=== PATIENT | male | born 1950 | race Caucasian/White ===

== ENCOUNTER 2017-10-17 14:56 | Outpatient (CLI) | payer MEDICARE, BC, SELFPAY ==
[2017-10-18 09:31] LABS: PSA, Diagnostic 0.7 ng/ml (0-4.5)
[2017-10-20 01:17] LABS: Testosterone, Total 31 ng/dL (240-950)
== END 2017-10-17 15:16 ==
PROVIDERS: PCP Family Medicine; Visit Provider Nurse Practitioner
DX: C61 Malignant neoplasm of prostate (principal)
CPT/HCPCS: 36415; 84403; 84153

== ENCOUNTER 2018-01-10 14:29 | Outpatient (REF) | payer MEDICARE, BC, SELFPAY ==
[2018-01-10 21:47] LABS: TSH 3.55 uIU/mL (0.358-3.74)
== END 2018-01-10 14:49 ==
LOC: NCHCN 14:29
PROVIDERS: PCP Family Medicine; Visit Provider Family Medicine
DX: E04.1 Nontoxic single thyroid nodule (principal)
CPT/HCPCS: 84439; 84443

== ENCOUNTER 2018-05-16 11:54 | Outpatient (CLI) | payer MEDICARE, BC, SELFPAY ==
[2018-05-17 10:06] LABS: PSA, Diagnostic 9.2 ng/ml (0-4.5)
[2018-05-18 08:25] LABS: Testosterone, Total 58 ng/dL (240-950)
== END 2018-05-16 12:14 ==
PROVIDERS: PCP Family Medicine
DX: C61 Malignant neoplasm of prostate (principal)
CPT/HCPCS: 36415; 84403; 84153

== ENCOUNTER 2018-07-17 15:02 | Outpatient (CLI) | payer MEDICARE, BC, SELFPAY ==
[2018-07-17 15:34] LABS: Abs Immature Grans 0.01 k/cumm (0.0-0.09); Absolute Basophil Count 0.02 k/cumm (0.0-0.2); Absolute Eosinophil Count 0.06 k/cumm (0.0-0.7); Absolute Lymphocyte Count 1.21 k/cumm (1.2-3.4); Absolute Monocyte Count 0.24 k/cumm (0.11-0.7); Absolute Neutrophil Count 3.91 k/cumm (1.2-6.7); Basophils % 0.4; Eosinophils % 1.1; HCT 43.3 % (40.0-50.0); HGB 14.4 g/dL (13.5-17.5); Immature Grans % 0.2; Lymphocytes % 22.2; Mean Corp. HGB Concentration 33.3 g/dL (32.0-36.0); Mean Corpuscular Hemoglobin 28.4 pg (27.0-33.0); Mean Corpuscular Volume 85.4 fL (80-95); Mean Platelet Volume 8.9 fL (8.0-11.0); Monocytes % 4.4; Neutrophils % 71.7; Platelet Count 257 x1000/uL (130-400); RBC 5.07 m/cumm (4.50-6.00); RBC Distribution Width 13.4 % (11.8-14.1); White Blood Cell Count 5.45 k/cumm (4.4-10.8)
[2018-07-17 16:20] LABS: ALT 36 U/L (12-78); AST 18 U/L (15-37); Albumin 3.7 g/dL (3.4-5.0); Alkaline Phosphatase 114 U/L (46-116); BUN 16 mg/dL (7-18); Bilirubin, Total 0.3 mg/dL (0.2-1.0); CREATININE 0.84 mg/dL (0.70-1.30); Calcium 9.1 mg/dL (8.5-10.1); Chloride 104 mmol/L (98-107); Glucose 112 mg/dL (70-100); Potassium 4.1 mmol/L (3.5-5.1); Sodium 140 mmol/L (136-145); Total Protein 6.7 g/dL (6.4-8.2)
[2018-07-19 09:34] LABS: PSA, Diagnostic 19.9 ng/ml (0-4.5)
[2018-07-20 13:51] LABS: Testosterone, Total <7.0 ng/dL (240-950)
== END 2018-07-17 15:22 ==
PROVIDERS: PCP Family Medicine; Visit Provider Internal Medicine
DX: C61 Malignant neoplasm of prostate (principal); C79.51 Secondary malignant neoplasm of bone
CPT/HCPCS: 36415; 80053; 84403; 84153; 85025

== ENCOUNTER 2018-08-19 14:24 | Outpatient (CLI) | payer MEDICARE, BC, SELFPAY ==
[2018-08-19 14:53] LABS: Abs Immature Grans 0.01 k/cumm (0.0-0.09); Absolute Basophil Count 0.02 k/cumm (0.0-0.2); Absolute Eosinophil Count 0.01 k/cumm (0.0-0.7); Absolute Lymphocyte Count 0.82 k/cumm (1.2-3.4); Absolute Monocyte Count 0.23 k/cumm (0.11-0.7); Basophils % 0.3; Eosinophils % 0.2; HCT 43.4 % (40.0-50.0); HGB 14.7 g/dL (13.5-17.5); Immature Grans % 0.2; Lymphocytes % 13.7; Mean Corp. HGB Concentration 33.9 g/dL (32.0-36.0); Mean Corpuscular Hemoglobin 29.1 pg (27.0-33.0); Mean Corpuscular Volume 85.8 fL (80-95); Mean Platelet Volume 9.1 fL (8.0-11.0); Monocytes % 3.8; Neutrophils % 81.8; Platelet Count 256 x1000/uL (130-400); RBC 5.06 m/cumm (4.50-6.00); RBC Distribution Width 13.7 % (11.8-14.1); White Blood Cell Count 5.99 k/cumm (4.4-10.8)
[2018-08-19 15:35] LABS: ALT 25 U/L (12-78); AST 16 U/L (15-37); Albumin 3.8 g/dL (3.4-5.0); Alkaline Phosphatase 110 U/L (46-116); Anion Gap 10.5 mmol/L (3-11); BUN 14 mg/dL (7-18); Bilirubin, Total 0.5 mg/dL (0.2-1.0); CO2 25.5 mmol/L (21.0-32.0); CREATININE 0.83 mg/dL (0.70-1.30); Calcium 9.2 mg/dL (8.5-10.1); Chloride 106 mmol/L (98-107); Glucose 109 mg/dL (70-100); Potassium 4.2 mmol/L (3.5-5.1); Sodium 142 mmol/L (136-145); Total Protein 6.9 g/dL (6.4-8.2)
[2018-08-22 13:55] LABS: Testosterone, Total <7.0 ng/dL (240-950)
== END 2018-08-19 14:44 ==
PROVIDERS: PCP Family Medicine; Visit Provider Internal Medicine
DX: C61 Malignant neoplasm of prostate (principal); C79.51 Secondary malignant neoplasm of bone
CPT/HCPCS: 36415; 80053; 84403; 85025

== ENCOUNTER 2018-08-20 00:57 | Outpatient (CLI) | payer MEDICARE, BC, SELFPAY ==
--- NOTE | 2018-08-20 09:00 | DI.CT_ITS ---
SYMPTOMS/DIAGNOSIS: MALIGNANT NEOPLASM PROSTATE, METS TO BONE, RESTAGING, C61, C79.51 CT SCAN OF THE CHEST, ABDOMEN AND PELVIS: CT scan of the chest, abdomen and pelvis was performed following the uneventful administration of intravenous contrast material. Oral contrast was also administered. Most recent comparison available is 04/23/13. CT SCAN OF THE ABDOMEN AND PELVIS: There are again seen multiple homogeneously hypodense fluid attenuation lesions scattered throughout the liver. They appear to represent cysts. The largest are seen in the left lobe of the liver. The largest measures 2.8 x 2.2 cm. The portal, superior mesenteric and splenic veins are patent. The gallbladder is negative. There is no biliary ductal dilatation. The pancreas, spleen and adrenal glands are unremarkable. The kidneys show normal and symmetric enhancement. No evidence of a solid renal mass or obstruction is present. The urinary bladder is intact. There is mild diffuse thickening of the wall of the urinary bladder. This may be due to underdistention. No intraluminal mass is appreciated. Prostatic calcifications are in place. The abdominal aorta is of normal caliber. No significant abdominal or pelvic adenopathy, ascites or pneumoperitoneum is seen. There are small bilateral fat containing inguinal hernia. There is mild thickening of the wall of the distal esophagus. The remainder of the bowel shows no evidence of acute obstruction, inflammation or infection. There are no findings in the right lower quadrant to suggest acute appendicitis. There are sclerotic foci seen in the bones. The prominent lesions are seen in the left iliac bone. These were not present on the prior examination from 2013. The findings are suspicious for osseous metastatic disease. There are sclerotic foci seen in the spine. Degenerative changes are present throughout the spine particularly at the L 5 - S 1 disc space. There is again a fat density mass in the right gluteal muscles most suggestive of a benign lipoma. IMPRESSION: 1. Multiple sclerotic foci seen in the lumbar and sacral spine and pelvis suspicious for osseous metastatic disease. 2. Mild thickening of the wall of the urinary bladder. This may be due to chronic bladder outlet obstruction. An inflammatory or infectious process can not be excluded. 3. No evidence of significant abdominal or pelvic adenopathy. 4. Thickening of the wall of the distal esophagus. This is nonspecific but infectious or inflammatory process should be considered. Follow up as clinically appropriate. 5. Hepatic cysts. CT SCAN OF THE CHEST: There are no priors for comparison. The visualized thyroid gland is grossly unremarkable. The thoracic aorta is of normal caliber. The heart size is within normal limits. No significant pericardial effusion is seen. The central pulmonary arteries are unremarkable. No definite pulmonary emboli are appreciated. No pleural effusion or pneumothorax is identified. No significant thoracic adenopathy is appreciated. There is concentric thickening of the wall of the distal esophagus. No focal consolidating infiltrates are seen. The tracheobronchial tree is unremarkable. No suspicious noncalcified pulmonary nodules are present. There are sclerotic foci seen in the thoracic spine and the ribs most suggestive of metastatic disease. Degenerative changes are seen in the spine. IMPRESSION: Findings most consistent with osseous metastatic disease.
[2018-08-20] MEDS: Omnipaque 350 MG/ML 50 ML BTL IJ (09:52)
[2018-08-20] MEDS: Breeza Beverage 473 ML BTL PO (09:53)
[2018-08-20] MEDS: Omnipaque 350 MG/ML 100 ML BTL IJ (09:53)
--- NOTE | 2018-08-20 12:55 | DI.NM_ITS ---
SYMPTOMS/DIAGNOSIS: C61, C79.51, MALIGNANT NEOPLASM PROSTATE, METS TO BONE, RESTAGING BONE SCAN: Comparison is 04/23/13. The patient received 26.8 millicuries of Technetium 99 M MDP and whole body imaging was performed. There are multiple foci of increased radiotracer uptake. Areas are seen in the left pelvis, ribs bilaterally, left humerus and the proximal right humerus. The findings are suspicious for osseous metastatic disease. These are findings are new compared to the examination from 04/23/13. There is increased radiotracer uptake seen in the cervical spine which may be degenerative in nature. There is normal radiotracer uptake seen in the kidneys and urinary bladder. IMPRESSION: Findings most suggestive of osseous metastatic disease.
== END 2018-08-20 01:17 ==
PROVIDERS: PCP Family Medicine; Visit Provider Internal Medicine
DX: C61 Malignant neoplasm of prostate (principal); C79.51 Secondary malignant neoplasm of bone; Z12.89 Encounter for screening for malignant neoplasm of other sites; N32.9 Bladder disorder, unspecified; K22.8 Other specified diseases of esophagus; K76.89 Other specified diseases of liver
CPT/HCPCS: 74177; 78306; 71260; J3490; Q9967

== ENCOUNTER 2018-09-26 08:47 | Outpatient (CLI) | payer MEDICARE, BC, SELFPAY ==
[2018-09-26 11:53] LABS: Abs Immature Grans 0.01 k/cumm (0.0-0.09); Absolute Basophil Count 0.02 k/cumm (0.0-0.2); Absolute Eosinophil Count 0.04 k/cumm (0.0-0.7); Absolute Lymphocyte Count 1.37 k/cumm (1.2-3.4); Absolute Monocyte Count 0.43 k/cumm (0.11-0.7); Absolute Neutrophil Count 3.82 k/cumm (1.2-6.7); Basophils % 0.4; Eosinophils % 0.7; HGB 14.3 g/dL (13.5-17.5); Immature Grans % 0.2; Lymphocytes % 24.1; Mean Corp. HGB Concentration 33.3 g/dL (32.0-36.0); Mean Corpuscular Hemoglobin 28.9 pg (27.0-33.0); Mean Corpuscular Volume 86.9 fL (80-95); Mean Platelet Volume 8.9 fL (8.0-11.0); Monocytes % 7.6; Platelet Count 282 x1000/uL (130-400); RBC 4.95 m/cumm (4.50-6.00); RBC Distribution Width 13.4 % (11.8-14.1); White Blood Cell Count 5.69 k/cumm (4.4-10.8)
[2018-09-26 12:16] LABS: ALT 21 U/L (12-78); AST 11 U/L (15-37); Albumin 3.5 g/dL (3.4-5.0); Alkaline Phosphatase 105 U/L (46-116); Anion Gap 10.3 mmol/L (3-11); BUN 12 mg/dL (7-18); Bilirubin, Total 0.6 mg/dL (0.2-1.0); CO2 26.7 mmol/L (21.0-32.0); CREATININE 0.81 mg/dL (0.70-1.30); Calcium 8.7 mg/dL (8.5-10.1); Chloride 105 mmol/L (98-107); Glucose 93 mg/dL (70-100); Potassium 3.8 mmol/L (3.5-5.1); Sodium 142 mmol/L (136-145); Total Protein 6.7 g/dL (6.4-8.2)
[2018-09-27 10:02] LABS: PSA, Diagnostic 1.9 ng/ml (0-4.5)
[2018-09-30 12:30] LABS: Testosterone, Total <7.0 ng/dL (240-950)
== END 2018-09-26 09:07 ==
PROVIDERS: PCP Family Medicine; Visit Provider Internal Medicine
DX: C61 Malignant neoplasm of prostate (principal); C79.51 Secondary malignant neoplasm of bone
CPT/HCPCS: 36415; 80053; 84403; 84153; 85025

== ENCOUNTER 2018-10-16 09:54 | Outpatient (CLI) | payer MEDICARE, SELFPAY ==
[2018-10-16 10:20] LABS: Abs Immature Grans 0.01 k/cumm (0.0-0.09); Absolute Basophil Count 0.02 k/cumm (0.0-0.2); Absolute Eosinophil Count 0.04 k/cumm (0.0-0.7); Absolute Lymphocyte Count 1.23 k/cumm (1.2-3.4); Absolute Monocyte Count 0.45 k/cumm (0.11-0.7); Absolute Neutrophil Count 3.44 k/cumm (1.2-6.7); Basophils % 0.4; Eosinophils % 0.8; HCT 42.3 % (40.0-50.0); HGB 14.2 g/dL (13.5-17.5); Immature Grans % 0.2; Lymphocytes % 23.7; Mean Corp. HGB Concentration 33.6 g/dL (32.0-36.0); Mean Corpuscular Hemoglobin 28.9 pg (27.0-33.0); Mean Corpuscular Volume 86.2 fL (80-95); Mean Platelet Volume 8.9 fL (8.0-11.0); Monocytes % 8.7; Neutrophils % 66.2; Platelet Count 261 x1000/uL (130-400); RBC 4.91 m/cumm (4.50-6.00); RBC Distribution Width 13.3 % (11.8-14.1); White Blood Cell Count 5.19 k/cumm (4.4-10.8)
[2018-10-16 11:05] LABS: ALT 21 U/L (16-63); AST 13 U/L (15-37); Albumin 3.5 g/dL (3.4-5.0); Alkaline Phosphatase 107 U/L (46-116); Anion Gap 10.3 mmol/L (3-11); BUN 13 mg/dL (7-18); Bilirubin, Total 0.6 mg/dL (0.2-1.0); CO2 24.7 mmol/L (21.0-32.0); CREATININE 0.81 mg/dL (0.70-1.30); Calcium 8.5 mg/dL (8.5-10.1); Chloride 108 mmol/L (98-107); Glucose 103 mg/dL (70-100); Potassium 3.6 mmol/L (3.5-5.1); Sodium 143 mmol/L (136-145); Total Protein 6.5 g/dL (6.4-8.2)
[2018-10-17 11:05] LABS: PSA, Screening 2.1 ng/ml (0-4.5)
[2018-10-19 12:57] LABS: Testosterone, Total <7.0 ng/dL (240-950)
== END 2018-10-16 10:14 ==
PROVIDERS: PCP Family Medicine; Visit Provider Internal Medicine
DX: C61 Malignant neoplasm of prostate (principal); C79.51 Secondary malignant neoplasm of bone
CPT/HCPCS: 36415; 80053; 84153; 84403; 85025

== ENCOUNTER 2018-11-26 14:56 | Outpatient (CLI) | payer MEDICARE, BC, SELFPAY ==
[2018-11-26 15:57] LABS: Abs Immature Grans 0.01 k/cumm (0.0-0.09); Absolute Basophil Count 0.02 k/cumm (0.0-0.2); Absolute Eosinophil Count 0.02 k/cumm (0.0-0.7); Absolute Lymphocyte Count 0.93 k/cumm (1.2-3.4); Absolute Monocyte Count 0.23 k/cumm (0.11-0.7); Absolute Neutrophil Count 5.34 k/cumm (1.2-6.7); Basophils % 0.3; Eosinophils % 0.3; HCT 41.8 % (40.0-50.0); HGB 14.2 g/dL (13.5-17.5); Immature Grans % 0.2; Lymphocytes % 14.2; Mean Corpuscular Hemoglobin 29.5 pg (27.0-33.0); Mean Corpuscular Volume 86.7 fL (80-95); Monocytes % 3.5; Neutrophils % 81.5; Platelet Count 278 x1000/uL (130-400); RBC 4.82 m/cumm (4.50-6.00); RBC Distribution Width 13.1 % (11.8-14.1); White Blood Cell Count 6.55 k/cumm (4.4-10.8)
[2018-11-26 16:24] LABS: ALT 19 U/L (16-63); AST 13 U/L (15-37); Albumin 3.7 g/dL (3.4-5.0); Alkaline Phosphatase 110 U/L (46-116); Anion Gap 12.8 mmol/L (3-11); BUN 17 mg/dL (7-18); Bilirubin, Total 0.4 mg/dL (0.2-1.0); CO2 25.2 mmol/L (21.0-32.0); CREATININE 0.87 mg/dL (0.70-1.30); Calcium 9.1 mg/dL (8.5-10.1); Chloride 106 mmol/L (98-107); Glucose 136 mg/dL (70-100); Potassium 4.2 mmol/L (3.5-5.1); Sodium 144 mmol/L (136-145); Total Protein 6.7 g/dL (6.4-8.2)
[2018-11-27 10:58] LABS: PSA, Diagnostic 2.9 ng/ml (0-4.5)
[2018-11-28 12:48] LABS: Testosterone, Total <7.0 ng/dL (240-950)
== END 2018-11-26 15:16 ==
PROVIDERS: PCP Family Medicine; Visit Provider Internal Medicine
DX: C61 Malignant neoplasm of prostate (principal); C79.51 Secondary malignant neoplasm of bone
CPT/HCPCS: 36415; 80053; 84403; 84153; 85025

== ENCOUNTER 2019-01-04 08:52 | Outpatient (CLI) | payer MEDICARE, BC, SELFPAY ==
[2019-01-04 11:22] LABS: Abs Immature Grans 0.01 k/cumm (0.0-0.09); Absolute Basophil Count 0.03 k/cumm (0.0-0.2); Absolute Eosinophil Count 0.03 k/cumm (0.0-0.7); Absolute Lymphocyte Count 0.77 k/cumm (1.2-3.4); Absolute Monocyte Count 0.31 k/cumm (0.11-0.7); Absolute Neutrophil Count 4.89 k/cumm (1.2-6.7); Basophils % 0.5; Eosinophils % 0.5; HCT 41.9 % (40.0-50.0); HGB 14.2 g/dL (13.5-17.5); Immature Grans % 0.2; Lymphocytes % 12.7; Mean Corp. HGB Concentration 33.9 g/dL (32.0-36.0); Mean Corpuscular Hemoglobin 29.2 pg (27.0-33.0); Mean Corpuscular Volume 86.2 fL (80-95); Mean Platelet Volume 9.1 fL (8.0-11.0); Monocytes % 5.1; Platelet Count 269 x1000/uL (130-400); RBC 4.86 m/cumm (4.50-6.00); RBC Distribution Width 13.1 % (11.8-14.1); White Blood Cell Count 6.04 k/cumm (4.4-10.8)
[2019-01-04 11:41] LABS: ALT 20 U/L (16-63); AST 13 U/L (15-37); Albumin 3.7 g/dL (3.4-5.0); Alkaline Phosphatase 113 U/L (46-116); BUN 13 mg/dL (7-18); Bilirubin, Total 0.5 mg/dL (0.2-1.0); CREATININE 0.84 mg/dL (0.70-1.30); Calcium 8.8 mg/dL (8.5-10.1); Chloride 106 mmol/L (98-107); Glucose 99 mg/dL (74-106); Potassium 3.5 mmol/L (3.5-5.1); Sodium 143 mmol/L (136-145); Total Protein 6.7 g/dL (6.4-8.2)
[2019-01-06 11:13] LABS: PSA, Diagnostic 4.3 ng/mL (0.0-4.5)
[2019-01-09 07:17] LABS: Testosterone, Total <7.0 ng/dL (240-950)
== END 2019-01-04 09:12 ==
PROVIDERS: PCP Family Medicine; Visit Provider Internal Medicine
DX: C61 Malignant neoplasm of prostate (principal); C79.51 Secondary malignant neoplasm of bone
CPT/HCPCS: 36415; 80053; 84403; 84153; 85025

== ENCOUNTER 2019-01-06 00:35 | Outpatient (CLI) | payer MEDICARE, BC, SELFPAY ==
--- NOTE | 2019-01-06 08:27 | DI.NM_ITS ---
EXAM: NM BONE SCAN WHOLE BODY GRP CLINICAL HISTORY: MALIGNANT NEOPLASM PROSTATIC CA,C61,C79.51, RESTAGING. TECHNIQUE: Injected Dose: 25.2 mCi Tc-99m MDP Delayed Images: 2-3 hours. COMPARISON: WHOLE BODY BONE SCAN from 08/20/2018 FINDINGS: Symmetric axial uptake. Bilateral renal excretion is identified. There are again seen multiple areas of increased radiotracer uptake in the axial and appendicular skeleton. There has been interval incr ease in size of the uptake in the midshaft of the left humerus. There is increased prominence of a f ocus of increased radiotracer uptake in the L1 vertebral body since 08/10/2018. There is a new focus of increased uptake in the right femoral head. There are no other new areas of radiotracer uptake p resent. IMPRESSION: 1. Findings of osseous metastatic disease. 2. New area of uptake seen in the right femoral head. 3. Enlarging lesion in the left humerus.
== END 2019-01-06 00:55 ==
PROVIDERS: PCP Family Medicine; Visit Provider Internal Medicine
DX: C61 Malignant neoplasm of prostate (principal); C79.51 Secondary malignant neoplasm of bone
CPT/HCPCS: 78306

== ENCOUNTER 2019-01-08 01:15 | Outpatient (CLI) | payer MEDICARE, BC, SELFPAY ==
--- NOTE | 2019-01-08 09:04 | DI.CT_ITS ---
EXAM: CT CHEST/ABD/PEL W CLINICAL HISTORY: PROSTATE CA METASTATIC TO BONE,C61,C79.51, RESTAGING EXAM TECHNIQUE: Images were performed from the clavicles through the ischial tuberosities after oral and IV contrast. COMPARISON: CT CHEST/ABD/PEL W from 08/20/2018 CT CHEST/ABD/PEL W from 08/20/2018 NM BONE SCAN WHOLE BODY GRP from 01/06/2019 FINDINGS: Chest CT: The lungs appear clear. No pulmonary nodules, adenopathy, infiltrate, pleural or pericar dial effusions are seen. There has been interval increase in size of previously noted sclerotic lesi ons in the thoracic spine, particularly at the T3 and T5 levels. Small sclerotic foci are seen in th e sternum and manubrium. Bilateral rib sclerotic lesions are again noted, greater on the right anter iorly. Abdomen and pelvic CT: There are stable liver cysts. The gallbladder, spleen, pancreas, kidneys and adrenals are unremarkable. Metallic seeds are again noted in the prostate. There is mild diffuse bl adder wall thickening, unchanged. There are bilateral fatty containing inguinal hernias. A right gl uteus negra lipoma is again noted. No adenopathy or free fluid is seen in the abdomen or pelvis. T here has been interval increase in size of the previously noted L1 metastatic lesion. The lesions in the left ilium have also increased in size. There has also been increase in size of a lesion in the l eft proximal femur. Others tiny scattered foci sclerotic foci are seen. IMPRESSION: Interval increase in size of sclerotic bony metastases.
[2019-01-08] MEDS: Omnipaque 350 MG/ML 100 ML BTL IJ (09:22)
== END 2019-01-08 01:35 ==
PROVIDERS: PCP Family Medicine
DX: C61 Malignant neoplasm of prostate (principal); C79.51 Secondary malignant neoplasm of bone; K76.89 Other specified diseases of liver; Z12.89 Encounter for screening for malignant neoplasm of other sites
CPT/HCPCS: 74177; 71260; J3490

== ENCOUNTER 2019-02-11 09:51 | Outpatient (CLI) | payer MEDICARE, BC, SELFPAY ==
[2019-02-11 10:43] LABS: Abs Immature Grans 0.02 k/cumm (0.0-0.09); Absolute Basophil Count 0.05 k/cumm (0.0-0.2); Absolute Eosinophil Count 0.01 k/cumm (0.0-0.7); Absolute Lymphocyte Count 1.19 k/cumm (1.2-3.4); Absolute Monocyte Count 0.58 k/cumm (0.11-0.7); Absolute Neutrophil Count 5.91 k/cumm (1.2-6.7); Basophils % 0.6; Eosinophils % 0.1; HCT 41.7 % (40.0-50.0); HGB 14.3 g/dL (13.5-17.5); Immature Grans % 0.3 %; Lymphocytes % 15.3; Mean Corp. HGB Concentration 34.3 g/dL (32.0-36.0); Mean Corpuscular Hemoglobin 29.3 pg (27.0-33.0); Mean Corpuscular Volume 85.5 fL (80-95); Mean Platelet Volume 8.4 fL (8.0-11.0); Monocytes % 7.5; Neutrophils % 76.2; Platelet Count 498 x1000/uL (130-400); RBC 4.88 m/cumm (4.50-6.00); RBC Distribution Width 13.7 % (11.8-14.1); White Blood Cell Count 7.76 k/cumm (4.4-10.8)
[2019-02-11 10:50] LABS: ALT 18 U/L (16-63); AST 10 U/L (15-37); Albumin 3.6 g/dL (3.4-5.0); Alkaline Phosphatase 88 U/L (46-116); Anion Gap 9.7 mmol/L (3-11); BUN 17 mg/dL (7-18); Bilirubin, Total 0.5 mg/dL (0.2-1.0); CO2 25.3 mmol/L (21.0-32.0); CREATININE 0.77 mg/dL (0.70-1.30); Calcium 8.9 mg/dL (8.5-10.1); Chloride 103 mmol/L (98-107); Glucose 106 mg/dL (74-106); Potassium 4.3 mmol/L (3.5-5.1); Sodium 138 mmol/L (136-145); Total Protein 7.1 g/dL (6.4-8.2)
[2019-02-12 13:08] LABS: PSA, Diagnostic 10.4 ng/mL (0.0-4.5)
[2019-02-13 07:36] LABS: Testosterone, Total <7.0 ng/dL (240-950)
== END 2019-02-11 10:11 ==
PROVIDERS: PCP Family Medicine; Visit Provider Internal Medicine
DX: C61 Malignant neoplasm of prostate (principal); C79.51 Secondary malignant neoplasm of bone
CPT/HCPCS: 36415; 80053; 84403; 84153; 85025

== ENCOUNTER 2019-03-04 01:20 | Outpatient (CLI) | payer MEDICARE, BC, SELFPAY ==
[2019-03-04 10:29] LABS: Abs Immature Grans 0.01 k/cumm (0.0-0.09); Absolute Basophil Count 0.04 k/cumm (0.0-0.2); Absolute Eosinophil Count 0.01 k/cumm (0.0-0.7); Absolute Lymphocyte Count 1.05 k/cumm (1.2-3.4); Absolute Monocyte Count 0.61 k/cumm (0.11-0.7); Absolute Neutrophil Count 4.48 k/cumm (1.2-6.7); Basophils % 0.6; Eosinophils % 0.2; HCT 41.1 % (40.0-50.0); Immature Grans % 0.2 %; Lymphocytes % 16.9; Mean Corp. HGB Concentration 34.1 g/dL (32.0-36.0); Mean Corpuscular Hemoglobin 29.6 pg (27.0-33.0); Mean Corpuscular Volume 86.9 fL (80-95); Mean Platelet Volume 9.1 fL (8.0-11.0); Monocytes % 9.8; Neutrophils % 72.3; Platelet Count 393 x1000/uL (130-400); RBC 4.73 m/cumm (4.50-6.00); RBC Distribution Width 14.6 % (11.8-14.1)
[2019-03-04 10:49] LABS: ALT 19 U/L (16-63); AST 13 U/L (15-37); Albumin 3.7 g/dL (3.4-5.0); Alkaline Phosphatase 89 U/L (46-116); Anion Gap 10.3 mmol/L (3-11); BUN 19 mg/dL (7-18); Bilirubin, Total 0.6 mg/dL (0.2-1.0); CO2 25.7 mmol/L (21.0-32.0); CREATININE 0.76 mg/dL (0.70-1.30); Calcium 8.7 mg/dL (8.5-10.1); Chloride 105 mmol/L (98-107); Glucose 106 mg/dL (74-106); Potassium 4.3 mmol/L (3.5-5.1); Sodium 141 mmol/L (136-145)
[2019-03-06 07:31] LABS: Testosterone, Total <7.0 ng/dL (240-950)
[2019-03-06 09:02] LABS: PSA, Diagnostic 11.5 ng/mL (0.0-4.5)
== END 2019-03-04 01:40 ==
PROVIDERS: PCP Family Medicine; Visit Provider Internal Medicine
DX: C61 Malignant neoplasm of prostate (principal); C79.51 Secondary malignant neoplasm of bone
CPT/HCPCS: 36415; 80053; 84403; 84153; 85025

== ENCOUNTER 2019-03-24 03:30 | Outpatient (CLI) | payer MEDICARE, BC, SELFPAY ==
[2019-03-24 15:15] LABS: Abs Immature Grans 0.02 k/cumm (0.0-0.09); Absolute Basophil Count 0.05 k/cumm (0.0-0.2); Absolute Eosinophil Count 0.02 k/cumm (0.0-0.7); Absolute Lymphocyte Count 1.34 k/cumm (1.2-3.4); Absolute Neutrophil Count 5.52 k/cumm (1.2-6.7); Basophils % 0.7; Eosinophils % 0.3; HCT 41.2 % (40.0-50.0); HGB 13.6 g/dL (13.5-17.5); Immature Grans % 0.3 %; Lymphocytes % 17.5; Mean Corpuscular Hemoglobin 29.1 pg (27.0-33.0); Mean Corpuscular Volume 88.2 fL (80-95); Monocytes % 9.2; Platelet Count 331 x1000/uL (130-400); RBC 4.67 m/cumm (4.50-6.00); RBC Distribution Width 15.4 % (11.8-14.1); White Blood Cell Count 7.65 k/cumm (4.4-10.8)
[2019-03-24 15:26] LABS: ALT 18 U/L (16-63); AST 15 U/L (15-37); Albumin 3.7 g/dL (3.4-5.0); Alkaline Phosphatase 86 U/L (46-116); Anion Gap 6.8 mmol/L (3-11); BUN 13 mg/dL (7-18); Bilirubin, Total 0.5 mg/dL (0.2-1.0); CO2 28.2 mmol/L (21.0-32.0); CREATININE 0.85 mg/dL (0.70-1.30); Calcium 8.7 mg/dL (8.5-10.1); Chloride 107 mmol/L (98-107); Glucose 103 mg/dL (74-106); Potassium 4.7 mmol/L (3.5-5.1); Sodium 142 mmol/L (136-145); Total Protein 6.7 g/dL (6.4-8.2)
[2019-03-25 10:30] LABS: PSA, Diagnostic 14.4 ng/mL (0.0-4.5)
[2019-03-27 07:40] LABS: Testosterone, Total <7.0 ng/dL (240-950)
== END 2019-03-24 03:50 ==
PROVIDERS: PCP Family Medicine; Visit Provider Internal Medicine
DX: C61 Malignant neoplasm of prostate (principal); C79.51 Secondary malignant neoplasm of bone
CPT/HCPCS: 36415; 80053; 84403; 84153; 85025

== ENCOUNTER 2019-04-15 01:49 | Outpatient (CLI) | payer MEDICARE, BC, SELFPAY ==
[2019-04-15 10:03] LABS: Abs Immature Grans 0.01 k/cumm (0.0-0.09); Absolute Basophil Count 0.02 k/cumm (0.0-0.2); Absolute Eosinophil Count 0.01 k/cumm (0.0-0.7); Absolute Lymphocyte Count 0.97 k/cumm (1.2-3.4); Absolute Monocyte Count 0.48 k/cumm (0.11-0.7); Absolute Neutrophil Count 4.51 k/cumm (1.2-6.7); Basophils % 0.3; Eosinophils % 0.2; HGB 13.3 g/dL (13.5-17.5); Immature Grans % 0.2 %; Lymphocytes % 16.2; Mean Corp. HGB Concentration 33.3 g/dL (32.0-36.0); Mean Corpuscular Hemoglobin 29.6 pg (27.0-33.0); Mean Corpuscular Volume 89.1 fL (80-95); Mean Platelet Volume 8.7 fL (8.0-11.0); Neutrophils % 75.1; Platelet Count 369 x1000/uL (130-400); RBC 4.49 m/cumm (4.50-6.00); RBC Distribution Width 15.2 % (11.8-14.1)
[2019-04-15 10:24] LABS: ALT 17 U/L (16-63); AST 13 U/L (15-37); Alkaline Phosphatase 65 U/L (46-116); Anion Gap 7.8 mmol/L (3-11); BUN 15 mg/dL (7-18); Bilirubin, Total 0.3 mg/dL (0.2-1.0); CO2 28.2 mmol/L (21.0-32.0); CREATININE 0.72 mg/dL (0.70-1.30); Calcium 7.7 mg/dL (8.5-10.1); Chloride 105 mmol/L (98-107); Glucose 102 mg/dL (74-106); Potassium 4.1 mmol/L (3.5-5.1); Sodium 141 mmol/L (136-145); Total Protein 6.7 g/dL (6.4-8.2)
[2019-04-16 10:48] LABS: PSA, Diagnostic 15.9 ng/mL (0.0-4.5)
[2019-04-16 11:04] LABS: Lyme Ab w Rflx to Lyme Confirm Negative (Negative)
[2019-04-17 08:25] LABS: Testosterone, Total <7.0 ng/dL (240-950)
[2019-04-17 21:14] LABS: Anaplasma phagocytophilum Negative (Negative); B. miyamotoi PCR Negative (Negative); Babesia divergens/MO-1 Negative (Negative); Babesia duncani Negative (Negative); Babesia microti Negative (Negative); Ehrlichia chaffeensis Negative (Negative); Ehrlichia ewingii/canis Negative (Negative); Ehrlichia muris eauclairensis Negative (Negative)
== END 2019-04-15 02:09 ==
PROVIDERS: Family Medicine; PCP Family Medicine; Visit Provider Internal Medicine
DX: C61 Malignant neoplasm of prostate (principal); C79.51 Secondary malignant neoplasm of bone; M25.50 Pain in unspecified joint; W57.XXXA Bitten or stung by nonvenomous insect and other nonvenomous arthropods, initial encounter; T14.8XXA Other injury of unspecified body region, initial encounter
CPT/HCPCS: 36415; 80053; 84403; 87798; 84153; 85025; 86618

== ENCOUNTER 2019-05-06 04:27 | Outpatient (CLI) | payer MEDICARE, BC, SELFPAY ==
[2019-05-06 10:52] LABS: Abs Immature Grans 0.01 k/cumm (0.0-0.09); Absolute Basophil Count 0.03 k/cumm (0.0-0.2); Absolute Eosinophil Count 0.02 k/cumm (0.0-0.7); Absolute Lymphocyte Count 0.82 k/cumm (1.2-3.4); Absolute Monocyte Count 0.55 k/cumm (0.11-0.7); Absolute Neutrophil Count 5.58 k/cumm (1.2-6.7); Basophils % 0.4; Eosinophils % 0.3; HCT 41.6 % (40.0-50.0); HGB 13.9 g/dL (13.5-17.5); Immature Grans % 0.1 %; Lymphocytes % 11.7; Mean Corp. HGB Concentration 33.4 g/dL (32.0-36.0); Mean Corpuscular Hemoglobin 30.1 pg (27.0-33.0); Monocytes % 7.8; Neutrophils % 79.7; Platelet Count 332 x1000/uL (130-400); RBC 4.62 m/cumm (4.50-6.00); RBC Distribution Width 14.9 % (11.8-14.1); White Blood Cell Count 7.01 k/cumm (4.4-10.8)
[2019-05-06 11:32] LABS: ALT 22 U/L (16-63); AST 13 U/L (15-37); Albumin 3.6 g/dL (3.4-5.0); Alkaline Phosphatase 58 U/L (46-116); Anion Gap 8.1 mmol/L (3-11); BUN 19 mg/dL (7-18); Bilirubin, Total 0.4 mg/dL (0.2-1.0); CO2 24.9 mmol/L (21.0-32.0); CREATININE 0.74 mg/dL (0.70-1.30); Calcium 8.3 mg/dL (8.5-10.1); Chloride 108 mmol/L (98-107); Glucose 104 mg/dL (74-106); Potassium 4.1 mmol/L (3.5-5.1); Sodium 141 mmol/L (136-145); Total Protein 6.8 g/dL (6.4-8.2)
[2019-05-07 10:15] LABS: PSA, Diagnostic 18.9 ng/mL (0.0-4.5)
[2019-05-08 18:13] LABS: Testosterone, Total <7.0 ng/dL (240-950)
== END 2019-05-06 04:47 ==
PROVIDERS: PCP Family Medicine; Visit Provider Internal Medicine
DX: C61 Malignant neoplasm of prostate (principal); C79.51 Secondary malignant neoplasm of bone
CPT/HCPCS: 36415; 80053; 84403; 84153; 85025

== ENCOUNTER 2019-05-28 00:49 | Outpatient (CLI) | payer MEDICARE, BC, SELFPAY ==
[2019-05-28 08:57] LABS: Abs Immature Grans 0.01 k/cumm (0.0-0.09); Absolute Basophil Count 0.03 k/cumm (0.0-0.2); Absolute Lymphocyte Count 0.66 k/cumm (1.2-3.4); Absolute Monocyte Count 0.33 k/cumm (0.11-0.7); Absolute Neutrophil Count 2.46 k/cumm (1.2-6.7); Basophils % 0.9; HCT 41.1 % (40.0-50.0); HGB 13.5 g/dL (13.5-17.5); Immature Grans % 0.3 %; Lymphocytes % 18.9; Mean Corp. HGB Concentration 32.8 g/dL (32.0-36.0); Mean Corpuscular Hemoglobin 29.7 pg (27.0-33.0); Mean Corpuscular Volume 90.3 fL (80-95); Mean Platelet Volume 9.1 fL (8.0-11.0); Monocytes % 9.5; Neutrophils % 70.4; Platelet Count 282 x1000/uL (130-400); RBC 4.55 m/cumm (4.50-6.00); RBC Distribution Width 14.4 % (11.8-14.1); White Blood Cell Count 3.49 k/cumm (4.4-10.8)
[2019-05-28 09:11] LABS: ALT 21 U/L (16-63); AST 12 U/L (15-37); Albumin 3.6 g/dL (3.4-5.0); Alkaline Phosphatase 40 U/L (46-116); Anion Gap 8.3 mmol/L (3-11); BUN 16 mg/dL (7-18); Bilirubin, Total 0.4 mg/dL (0.2-1.0); CO2 26.7 mmol/L (21.0-32.0); CREATININE 0.73 mg/dL (0.70-1.30); Calcium 8.2 mg/dL (8.5-10.1); Chloride 105 mmol/L (98-107); Glucose 110 mg/dL (74-106); Sodium 140 mmol/L (136-145); Total Protein 6.8 g/dL (6.4-8.2)
--- NOTE | 2019-05-28 09:30 | DI.NM_ITS ---
EXAM: NM BONE SCAN WHOLE BODY GRP CLINICAL HISTORY: METASTATIC PROSTATE CA,S/P CHEMO, RESTAGING EXAM. TECHNIQUE: Injected Dose: 24.0 mCi Tc-99m MDP Delayed Images: 3 hours. COMPARISON: WHOLE BODY BONE SCAN from 08/20/2018 NM BONE SCAN WHOLE BODY GRP from 01/06/2019 FINDINGS: There has been interval decrease in the intensity of the previously noted bony metastases, seen in th e mid left humerus, bilateral ribs, spine and pelvis. No new areas of added abnormal increased activ ity are seen. Bilateral renal excretion is identified. The urinary bladder is distended and partial ly obscures the pelvis. IMPRESSION: Decrease in intensity of previously noted bony metastases. No new bony metastases are identified.. DATA REPOSITORY:
[2019-05-28] MEDS: Normal Saline Flush 10 ML SYR IVP (09:38)
[2019-05-28] MEDS: Normal Saline - Diluent 50 ML VIAL IV (10:27)
[2019-05-28] MEDS: Breeza Beverage 473 ML BTL PO (10:27)
[2019-05-28] MEDS: Omnipaque 350 MG/ML 100 ML BTL IJ (10:28)
[2019-05-28] MEDS: Omnipaque 350 MG/ML 50 ML BTL PO (10:29)
--- NOTE | 2019-05-28 10:30 | DI.CT_ITS ---
EXAM: CT CHEST/ABD/PEL W CLINICAL HISTORY: METASTATIC PROSTATE CA, S/P CHEMO, RESTAGING EXAM. TECHNIQUE: Imaging Protocol: Axial computed tomography images with coronal and sagittal reformatted images were created and reviewed CONTRAST MATERIAL: Intravenous: Omnipaque 350 Contrast volume:93 ml Oral: yes COMPARISON: NM BONE SCAN WHOLE BODY GRP from 01/06/2019 CT CHEST/ABD/PEL W from 01/08/2019 CT CHEST/ABD/PEL W from 01/08/2019 FINDINGS: CHEST: Thyroid: Unremarkable Tracheobronchial tree: Patent where visualized. Mediastinum and [place]: No dominant adenopathy or fluid collection. Pulmonary parenchyma: No consolidation or dominant measurable mass. No pulmonary nodules are seen.. Pleura: No effusion or pneumothorax. Lymph nodes: Within normal limits. Aorta: Thoracic portion non-dilated. Heart: Normal in size. Bones: Multiple sclerotic lesions are again noted in the spine as well as in bilateral ribs. No comp ression fractures are seen. ABDOMEN: Liver: Normal density. Multiple liver cysts are again noted. No suspicious masses are identified.. Gallbladder and biliary tract: No radiodense calculus or dilation. Pancreas: Normal density, no abnormal calcifications or inflammatory process. Spleen: Normal. Kidneys: Normal size, contour and axis. No radiodense stones or obstructive uropathy. No masses seen. Adrenal glands: No masses seen. Aorta: Abdominal portion non-dilated. Lymph nodes: Within normal limits. PELVIS: Bladder: Symmetric distention, stable mild wall thickening. Bowel: No obstruction or bowel wall thickening. Peritoneal cavity: No ascites, collection or mesenteric inflammatory response. Bones: There has been no change in a sclerotic lesion of L1. A few other tiny sclerotic lesions are seen in the lumbar vertebral bodies. There has been no significant change in the sclerotic lesions i n the left iliac wing. A few other scattered tiny sclerotic lesions are seen in the right pelvis. T he sclerotic lesion in the proximal left femur appears unchanged.. A small sclerotic area in the rig ht femoral head is unchanged. Prostate: Small in size and contains metallic seeds, unchanged. Soft tissues: An intramuscular lipoma is noted in the right gluteus negra. IMPRESSION: Stable sclerotic bony metastases. No new metastatic disease in the chest abdomen or pelvis.. DATA REPOSITORY: All CT scans at this facility are submitted to the National Radiology Data Registry (NRDR) Dose Index Registry (DIR) with the [employer] ([employer]). RADIATION OPTIMIZATION: All CT scans at this facility use at least one of these dose optimization te chniques: automated exposure control; mA and/or kV adjustment per patient size (includes targeted exa ms where dose is matched to clinical indication); or iterative reconstruction.
[2019-05-29 14:03] LABS: PSA, Diagnostic 25.4 ng/mL (0.0-4.5)
[2019-05-31 00:18] LABS: Testosterone, Total 9.9 ng/dL (240-950)
== END 2019-05-28 01:09 ==
PROVIDERS: PCP Family Medicine; Visit Provider Internal Medicine
DX: C61 Malignant neoplasm of prostate (principal); C79.51 Secondary malignant neoplasm of bone; Z92.21 Personal history of antineoplastic chemotherapy; K76.89 Other specified diseases of liver; Z12.89 Encounter for screening for malignant neoplasm of other sites
CPT/HCPCS: 74177; 78306; 80053; 84403; 71260; 84153; 85025; J3490; Q9967

== ENCOUNTER 2019-06-02 09:47 | Outpatient (CLI) | payer MEDICARE, BC, SELFPAY ==
[2019-06-02 15:35] LABS: Absolute Basophil Count 0.03 k/cumm (0.0-0.2); Absolute Eosinophil Count 0.03 k/cumm (0.0-0.7); Absolute Lymphocyte Count 1.04 k/cumm (1.2-3.4); Absolute Monocyte Count 0.43 k/cumm (0.11-0.7); Absolute Neutrophil Count 4.06 k/cumm (1.2-6.7); Basophils % 0.5; Eosinophils % 0.5; HCT 40.7 % (40.0-50.0); HGB 13.5 g/dL (13.5-17.5); Lymphocytes % 18.6; Mean Corp. HGB Concentration 33.2 g/dL (32.0-36.0); Mean Corpuscular Hemoglobin 29.8 pg (27.0-33.0); Mean Corpuscular Volume 89.8 fL (80-95); Mean Platelet Volume 9.6 fL (8.0-11.0); Monocytes % 7.7; Neutrophils % 72.7; Platelet Count 240 x1000/uL (130-400); RBC 4.53 m/cumm (4.50-6.00); RBC Distribution Width 14.1 % (11.8-14.1); White Blood Cell Count 5.59 k/cumm (4.4-10.8)
[2019-06-02 16:13] LABS: ALT 24 U/L (16-63); AST 13 U/L (15-37); Albumin 3.5 g/dL (3.4-5.0); Alkaline Phosphatase 45 U/L (46-116); Anion Gap 6.3 mmol/L (3-11); BUN 17 mg/dL (7-18); Bilirubin, Total 0.3 mg/dL (0.2-1.0); CO2 26.7 mmol/L (21.0-32.0); CREATININE 0.72 mg/dL (0.70-1.30); Calcium 8.5 mg/dL (8.5-10.1); Chloride 104 mmol/L (98-107); Glucose 114 mg/dL (74-106); Potassium 4.1 mmol/L (3.5-5.1); Sodium 137 mmol/L (136-145); Total Protein 6.3 g/dL (6.4-8.2)
[2019-06-03 11:30] LABS: PSA, Diagnostic 27.8 ng/mL (0.0-4.5)
[2019-06-05 07:56] LABS: Testosterone, Total <7.0 ng/dL (240-950)
== END 2019-06-02 10:07 ==
PROVIDERS: PCP Family Medicine; Visit Provider Internal Medicine
DX: C61 Malignant neoplasm of prostate (principal); C79.51 Secondary malignant neoplasm of bone
CPT/HCPCS: 36415; 80053; 84403; 84153; 85025

== ENCOUNTER 2019-07-09 02:30 | Outpatient (CLI) | payer MEDICARE, BC, SELFPAY ==
[2019-07-09 12:17] LABS: Absolute Basophil Count 0.02 k/cumm (0.0-0.2); Absolute Eosinophil Count 0.05 k/cumm (0.0-0.7); Absolute Lymphocyte Count 1.19 k/cumm (1.2-3.4); Absolute Monocyte Count 0.31 k/cumm (0.11-0.7); Absolute Neutrophil Count 2.83 k/cumm (1.2-6.7); Basophils % 0.5; Eosinophils % 1.1; HGB 14.8 g/dL (13.5-17.5); Mean Corp. HGB Concentration 33.6 g/dL (32.0-36.0); Mean Corpuscular Hemoglobin 28.7 pg (27.0-33.0); Mean Corpuscular Volume 85.3 fL (80-95); Neutrophils % 64.4; Platelet Count 261 x1000/uL (130-400); RBC 5.16 m/cumm (4.50-6.00); RBC Distribution Width 12.9 % (11.8-14.1)
[2019-07-09 12:56] LABS: ALT 15 U/L (16-63); AST 13 U/L (15-37); Albumin 3.9 g/dL (3.4-5.0); Alkaline Phosphatase 43 U/L (46-116); BUN 13 mg/dL (7-18); Bilirubin, Total 0.6 mg/dL (0.2-1.0); CREATININE 0.86 mg/dL (0.70-1.30); Calcium 8.9 mg/dL (8.5-10.1); Chloride 103 mmol/L (98-107); Glucose 103 mg/dL (74-106); Potassium 4.3 mmol/L (3.5-5.1); Sodium 137 mmol/L (136-145); Total Protein 6.9 g/dL (6.4-8.2)
[2019-07-10 15:22] LABS: PSA, Ultrasensitive 30.7 ng/mL (<= 4.5)
[2019-07-13 13:44] LABS: Testosterone, Total 8.7 ng/dL (240-950)
== END 2019-07-09 02:50 ==
PROVIDERS: PCP Family Medicine; Visit Provider Internal Medicine
DX: C61 Malignant neoplasm of prostate (principal)
CPT/HCPCS: 36415; 80053; 84153; 84403; 85025

== ENCOUNTER 2019-08-13 03:06 | Outpatient (CLI) | payer MEDICARE, BC, SELFPAY ==
[2019-08-13 09:13] LABS: Abs Immature Grans 0.01 k/cumm (0.0-0.09); Absolute Basophil Count 0.02 k/cumm (0.0-0.2); Absolute Eosinophil Count 0.09 k/cumm (0.0-0.7); Absolute Lymphocyte Count 1.28 k/cumm (1.2-3.4); Absolute Monocyte Count 0.31 k/cumm (0.11-0.7); Absolute Neutrophil Count 2.44 k/cumm (1.2-6.7); Basophils % 0.5; Eosinophils % 2.2; HCT 40.5 % (40.0-50.0); HGB 13.9 g/dL (13.5-17.5); Immature Grans % 0.2 %; Lymphocytes % 30.8; Mean Corp. HGB Concentration 34.3 g/dL (32.0-36.0); Mean Corpuscular Hemoglobin 28.8 pg (27.0-33.0); Mean Platelet Volume 8.5 fL (8.0-11.0); Monocytes % 7.5; Neutrophils % 58.8; Platelet Count 282 x1000/uL (130-400); RBC 4.82 m/cumm (4.50-6.00); RBC Distribution Width 13.3 % (11.8-14.1); White Blood Cell Count 4.15 k/cumm (4.4-10.8)
[2019-08-13 09:22] LABS: ALT 13 U/L (16-63); AST 12 U/L (15-37); Albumin 3.3 g/dL (3.4-5.0); Alkaline Phosphatase 38 U/L (46-116); BUN 16 mg/dL (7-18); Bilirubin, Total 0.4 mg/dL (0.2-1.0); CREATININE 0.78 mg/dL (0.70-1.30); Calcium 8.7 mg/dL (8.5-10.1); Chloride 103 mmol/L (98-107); Glucose 98 mg/dL (74-106); Potassium 4.1 mmol/L (3.5-5.1); Sodium 137 mmol/L (136-145); Total Protein 6.9 g/dL (6.4-8.2)
[2019-08-14 13:51] LABS: PSA, Ultrasensitive 38.9 ng/mL (<= 4.5)
[2019-08-15 11:37] LABS: Testosterone, Total <7.0 ng/dL (240-950)
== END 2019-08-13 03:26 ==
PROVIDERS: PCP Family Medicine; Visit Provider Internal Medicine
DX: C61 Malignant neoplasm of prostate (principal); C79.51 Secondary malignant neoplasm of bone
CPT/HCPCS: 36415; 80053; 84153; 84403; 85025

== ENCOUNTER 2019-09-16 04:36 | Outpatient (CLI) | payer MEDICARE, BC, SELFPAY ==
[2019-09-16 10:12] LABS: Absolute Basophil Count 0.03 10^3/uL (0.0-0.2); Absolute Eosinophil Count 0.09 10^3/uL (0.0-0.7); Absolute Lymphocyte Count 1.04 10^3/uL (1.2-3.4); Absolute Neutrophil Count 2.68 10^3/uL (1.2-6.7); Basophils % 0.7; Eosinophils % 2.2; HCT 40.9 % (40.0-50.0); HGB 13.6 g/dL (13.5-17.5); Lymphocytes % 25.1; MCH 28.8 pg (27.0-33.0); MCHC 33.3 % (32.0-36.0); MCV 86.7 fL (80-95); MPV 8.7 fL (8.0-11.0); Monocytes % 7.2; Neutrophils % 64.8; Nucleated RBC 0 %; Platelet Count 247 10^3/uL (130-400); RBC 4.72 10^6/uL (4.36-5.78); RDW 14.4 % (11.8-14.1); RDW-SD 45.5 fL; WBC 4.14 10^3/uL (4.4-10.8)
[2019-09-16 10:32] LABS: ALT 15 U/L (16-63); AST 13 U/L (15-37); Albumin 3.5 g/dL (3.4-5.0); Alkaline Phosphatase 33 U/L (46-116); Anion Gap 7.1 mmol/L (3-11); BUN 14 mg/dL (7-18); Bilirubin, Total 0.5 mg/dL (0.2-1.0); CO2 26.9 mmol/L (21.0-32.0); CREATININE 0.79 mg/dL (0.70-1.30); Calcium 8.4 mg/dL (8.5-10.1); Chloride 104 mmol/L (98-107); Glucose 98 mg/dL (74-106); Potassium 4.2 mmol/L (3.5-5.1); Sodium 138 mmol/L (136-145); Total Protein 6.9 g/dL (6.4-8.2)
[2019-09-17 14:13] LABS: PSA, Ultrasensitive 58.4 ng/mL (<= 4.5)
[2019-09-18 14:09] LABS: Testosterone, Total <7.0 ng/dL (240-950)
== END 2019-09-16 04:56 ==
PROVIDERS: PCP Family Medicine; Visit Provider Internal Medicine
DX: C61 Malignant neoplasm of prostate (principal)
CPT/HCPCS: 36415; 80053; 84153; 84403; 85025

== ENCOUNTER 2019-11-20 02:46 | Outpatient (CLI) | payer MEDICARE, BC, SELFPAY ==
[2019-11-20 12:34] LABS: Abs Immature Grans 0.01 10^3/uL (0.0-0.06); Absolute Basophil Count 0.02 10^3/uL (0.0-0.2); Absolute Eosinophil Count 0.03 10^3/uL (0.0-0.7); Absolute Lymphocyte Count 1.08 10^3/uL (1.2-3.4); Absolute Monocyte Count 0.23 10^3/uL (0.1-0.8); Absolute Neutrophil Count 3.79 10^3/uL (1.2-6.7); Basophils % 0.4; Eosinophils % 0.6; HCT 37.2 % (40.0-50.0); HGB 12.4 g/dL (13.5-17.5); Immature Grans % 0.2; Lymphocytes % 20.9; MCH 30.2 pg (27.0-33.0); MCHC 33.3 % (32.0-36.0); MCV 90.5 fL (80-95); Monocytes % 4.5; Neutrophils % 73.4; Nucleated RBC 0 %; Platelet Count 237 10^3/uL (130-400); RBC 4.11 10^6/uL (4.36-5.78); RDW 13.4 % (11.8-14.1); WBC 5.16 10^3/uL (4.4-10.8)
[2019-11-20 13:19] LABS: ALT 17 U/L (16-63); AST 12 U/L (15-37); Albumin 3.7 g/dL (3.4-5.0); Alkaline Phosphatase 62 U/L (46-116); Anion Gap 7.5 mmol/L (3-11); BUN 15 mg/dL (7-18); Bilirubin, Total 0.5 mg/dL (0.2-1.0); CO2 28.5 mmol/L (21.0-32.0); Calcium 8.5 mg/dL (8.5-10.1); Chloride 106 mmol/L (98-107); Glucose 98 mg/dL (74-106); Potassium 3.9 mmol/L (3.5-5.1); Sodium 142 mmol/L (136-145); Total Protein 6.5 g/dL (6.4-8.2)
[2019-11-22 14:40] LABS: PSA, Ultrasensitive 145 ng/mL (<= 4.5)
[2019-11-24 13:06] LABS: Testosterone, Total <7.0 ng/dL (240-950)
== END 2019-11-20 03:06 ==
PROVIDERS: PCP Family Medicine; Visit Provider Internal Medicine
DX: C61 Malignant neoplasm of prostate (principal)
CPT/HCPCS: 36415; 80053; 84153; 84403; 85025

== ENCOUNTER 2019-12-30 04:09 | Outpatient (CLI) | payer MEDICARE, BC, SELFPAY ==
[2019-12-30 15:35] LABS: Abs Immature Grans 0.02 10^3/uL (0.0-0.06); Absolute Basophil Count 0.02 10^3/uL (0.0-0.2); Absolute Eosinophil Count 0.03 10^3/uL (0.0-0.7); Absolute Lymphocyte Count 1.03 10^3/uL (1.2-3.4); Absolute Monocyte Count 0.31 10^3/uL (0.1-0.8); Absolute Neutrophil Count 5.18 10^3/uL (1.2-6.7); Basophils % 0.3; Eosinophils % 0.5; HCT 39.2 % (40.0-50.0); HGB 13.2 g/dL (13.5-17.5); Immature Grans % 0.3; Lymphocytes % 15.6; MCH 31.1 pg (27.0-33.0); MCHC 33.7 % (32.0-36.0); MCV 92.2 fL (80-95); MPV 8.7 fL (8.0-11.0); Monocytes % 4.7; Neutrophils % 78.6; Nucleated RBC 0 %; Platelet Count 240 10^3/uL (130-400); RBC 4.25 10^6/uL (4.36-5.78); RDW 14.8 % (11.8-14.1); WBC 6.59 10^3/uL (4.4-10.8)
[2019-12-30 16:38] LABS: ALT 15 U/L (16-63); AST 13 U/L (15-37); Albumin 3.8 g/dL (3.4-5.0); Alkaline Phosphatase 68 U/L (46-116); Anion Gap 5.5 mmol/L (3-11); BUN 14 mg/dL (7-18); Bilirubin, Total 0.4 mg/dL (0.2-1.0); CO2 28.5 mmol/L (21.0-32.0); CREATININE 0.98 mg/dL (0.70-1.30); Calcium 8.4 mg/dL (8.5-10.1); Chloride 105 mmol/L (98-107); Glucose 108 mg/dL (74-106); Potassium 4.2 mmol/L (3.5-5.1); Sodium 139 mmol/L (136-145); Total Protein 6.6 g/dL (6.4-8.2)
[2020-01-02 12:01] LABS: PSA, Ultrasensitive 337 ng/mL (<= 4.5)
[2020-01-06 11:50] LABS: Testosterone, Total <7.0 ng/dL (240-950)
== END 2019-12-30 04:29 ==
PROVIDERS: PCP Family Medicine; Visit Provider Internal Medicine
DX: C61 Malignant neoplasm of prostate (principal)
CPT/HCPCS: 36415; 80053; 84153; 84403; 85025

== ENCOUNTER 2020-02-04 01:37 | Outpatient (CLI) | payer MEDICARE, BC, SELFPAY ==
--- NOTE | 2020-02-04 | DI.NM_ITS ---
EXAM: CA BONE SCAN WHOLE BODY GRP CLINICAL HISTORY: METASTATIC PROSTATE CA TO BONE,C61,C79.51,RESTAGING EXAM. COMPARISON: [facility] BONE SCAN WHOLE BODY GRP from 05/28/2019 EXAMINATION: Whole body bone scan was performed with intravenous infusion 27.0 millicuries of techne tium 99 labeled methylene diphosphonate. Additional oblique images thorax and pelvis were obtained. Examination is compared with prior scan May 28, 2019. There are numerous new areas of increased up take seen in spine, skull, appendicular skeleton particularly the left humerus, pelvis, and proximal femurs. There is increased intensity and size of previously noted left humeral and left rib areas of increased uptake. FINDINGS: Findings consistent with significant interval increase in number and uptake intensity of numerous ske letal metastatic lesions. IMPRESSION:
[2020-02-04] MEDS: Omnipaque 350 MG/ML 50 ML BTL IJ (09:44)
[2020-02-04] MEDS: Breeza Beverage 473 ML BTL PO (09:45)
[2020-02-04 09:47] LABS: Abs Immature Grans 0.02 10^3/uL (0.0-0.06); Absolute Basophil Count 0.02 10^3/uL (0.0-0.2); Absolute Eosinophil Count 0.02 10^3/uL (0.0-0.7); Absolute Lymphocyte Count 0.71 10^3/uL (1.2-3.4); Absolute Monocyte Count 0.18 10^3/uL (0.1-0.8); Absolute Neutrophil Count 3.45 10^3/uL (1.2-6.7); Basophils % 0.5; Eosinophils % 0.5; HCT 37.9 % (40.0-50.0); HGB 12.8 g/dL (13.5-17.5); Immature Grans % 0.5; Lymphocytes % 16.1; MCH 31.7 pg (27.0-33.0); MCHC 33.8 % (32.0-36.0); MCV 93.8 fL (80-95); Monocytes % 4.1; Neutrophils % 78.3; Nucleated RBC 0 %; Platelet Count 236 10^3/uL (130-400); RBC 4.04 10^6/uL (4.36-5.78); RDW 15.5 % (11.8-14.1); RDW-SD 53.1 fL
[2020-02-04 10:02] LABS: ALT 23 U/L (16-63); AST 13 U/L (15-37); Albumin 3.6 g/dL (3.4-5.0); Alkaline Phosphatase 86 U/L (46-116); Anion Gap 7.1 mmol/L (3-11); BUN 13 mg/dL (7-18); Bilirubin, Total 0.6 mg/dL (0.2-1.0); CO2 26.9 mmol/L (21.0-32.0); CREATININE 0.98 mg/dL (0.70-1.30); Calcium 8.1 mg/dL (8.5-10.1); Chloride 105 mmol/L (98-107); Glucose 113 mg/dL (74-106); Potassium 3.8 mmol/L (3.5-5.1); Sodium 139 mmol/L (136-145); Total Protein 6.9 g/dL (6.4-8.2)
[2020-02-04] MEDS: Normal Saline - Diluent 50 ML VIAL IV (11:00)
[2020-02-04] MEDS: Omnipaque 350 MG/ML 100 ML BTL IJ (11:00)
--- NOTE | 2020-02-04 11:01 | DI.CT_ITS ---
EXAM: CT CHEST/ABD/PEL W CLINICAL HISTORY: PROSTATE CA METASTATIC TO BONE, RESTAGING EXAM,C61,C79.51 TECHNIQUE: CT examination of the chest, abdomen, and pelvis was performed utilizing intravenous inf usion of 100 cc of Omnipaque 350 with biphasic hepatic imaging. Oral contrast was also administered. COMPARISON: CT CT CHEST/ABD/PEL W from 05/28/2019 FINDINGS: Lungs are clear except for an incidental stable 3 millimeter in diameter left upper lobe nodule. No pleural effusion. No pleural based mass. No mediastinal or hilar adenopathy. No axillary or supraclavicular adenopathy. Tracheobronchial prudencio e appears intact. No evidence of pulmonary embolic disease. Unremarkable appearance of thoracic aorta and major branch vessels. Numerous bilateral hepatic cysts again noted, unchanged. Spleen is unremarkable in appearance. Pancreas appears intact. Adrenals appear normal. Kidneys are unremarkable in appearance with no renal mass, hydronephrosis, or nephrolithiasis. Mild u rinary bladder wall thickening noted Abdominal aorta and major visceral branches appear intact. No focal bowel pathology. Appendix is normal. No evidence of diverticulitis. No abdominal or pelvic adenopathy. . No significant abdominal wall hernia. There are numerous sclerotic bony metastases seen throughout the spine, ribs, and pelvis. These appe ar to have increased in number and size in comparison with prior CT May 27. IMPRESSION: Interval increase in number and size of numerous skeletal metastases in a patient with known prostati c carcinoma. No other significant change. RADIATION DOSE DELIVERED: 1,783.33mGy.cm Total DLP 1,783.33mGy.cm Total DLP
[2020-02-05 11:47] LABS: PSA, Ultrasensitive 634 ng/mL (<= 6.5)
[2020-02-09 14:43] LABS: Testosterone, Total 9.7 ng/dL (240-950)
== END 2020-02-04 01:57 ==
PROVIDERS: PCP Family Medicine; Visit Provider Internal Medicine
DX: C61 Malignant neoplasm of prostate (principal); C79.51 Secondary malignant neoplasm of bone
CPT/HCPCS: 74177; 78306; 80053; 84153; 84403; 71260; 85025; J3490; Q9967

== ENCOUNTER 2020-02-16 02:56 | Outpatient (CLI) | payer MEDICARE, BC, SELFPAY ==
[2020-02-16 10:52] LABS: Abs Immature Grans 0.02 10^3/uL (0.0-0.06); Absolute Basophil Count 0.02 10^3/uL (0.0-0.2); Absolute Eosinophil Count 0.02 10^3/uL (0.0-0.7); Absolute Lymphocyte Count 0.88 10^3/uL (1.2-3.4); Absolute Monocyte Count 0.27 10^3/uL (0.1-0.8); Absolute Neutrophil Count 3.24 10^3/uL (1.2-6.7); Basophils % 0.4; Eosinophils % 0.4; HCT 38.4 % (40.0-50.0); HGB 12.8 g/dL (13.5-17.5); Immature Grans % 0.4; Lymphocytes % 19.8; MCH 31.9 pg (27.0-33.0); MCHC 33.3 % (32.0-36.0); MCV 95.8 fL (80-95); MPV 9.2 fL (8.0-11.0); Monocytes % 6.1; Neutrophils % 72.9; Nucleated RBC 0 %; Platelet Count 259 10^3/uL (130-400); RBC 4.01 10^6/uL (4.36-5.78); RDW 15.4 % (11.8-14.1); RDW-SD 54.8 fL; WBC 4.45 10^3/uL (4.4-10.8)
[2020-02-16 11:44] LABS: ALT 21 U/L (16-63); AST 18 U/L (15-37); Albumin 3.8 g/dL (3.4-5.0); Alkaline Phosphatase 122 U/L (46-116); Anion Gap 6.1 mmol/L (3-11); BUN 14 mg/dL (7-18); Bilirubin, Total 0.6 mg/dL (0.2-1.0); CO2 27.9 mmol/L (21.0-32.0); CREATININE 0.83 mg/dL (0.70-1.30); Calcium 8.4 mg/dL (8.5-10.1); Chloride 103 mmol/L (98-107); Glucose 100 mg/dL (74-106); Potassium 4.1 mmol/L (3.5-5.1); Sodium 137 mmol/L (136-145); Total Protein 6.7 g/dL (6.4-8.2)
[2020-02-17 18:08] LABS: PSA, Ultrasensitive 775 ng/mL (<= 6.5)
[2020-02-20 01:07] LABS: Testosterone, Total 12 ng/dL (240-950)
== END 2020-02-16 03:16 ==
PROVIDERS: PCP Family Medicine; Visit Provider Internal Medicine
DX: C61 Malignant neoplasm of prostate (principal)
CPT/HCPCS: 36415; 80053; 84153; 84403; 85025

== ENCOUNTER 2020-03-08 04:35 | Outpatient (CLI) | payer MEDICARE, BC, SELFPAY ==
[2020-03-08 13:06] LABS: Abs Immature Grans 0.06 10^3/uL (0.0-0.06); Absolute Basophil Count 0.04 10^3/uL (0.0-0.2); Absolute Lymphocyte Count 0.99 10^3/uL (1.2-3.4); Absolute Monocyte Count 0.55 10^3/uL (0.1-0.8); Absolute Neutrophil Count 5.11 10^3/uL (1.2-6.7); Basophils % 0.6; HGB 11.8 g/dL (13.5-17.5); Immature Grans % 0.9; Lymphocytes % 14.7; MCH 31.8 pg (27.0-33.0); MCHC 32.8 % (32.0-36.0); Monocytes % 8.1; Neutrophils % 75.7; Nucleated RBC 0 %; Platelet Count 274 10^3/uL (130-400); RBC 3.71 10^6/uL (4.36-5.78); RDW 14.7 % (11.8-14.1); RDW-SD 53.2 fL; WBC 6.75 10^3/uL (4.4-10.8)
[2020-03-08 14:13] LABS: ALT 19 U/L (16-63); AST 46 U/L (15-37); Albumin 3.6 g/dL (3.4-5.0); Alkaline Phosphatase 167 U/L (46-116); Anion Gap 6.9 mmol/L (3-11); BUN 13 mg/dL (7-18); Bilirubin, Total 0.3 mg/dL (0.2-1.0); CO2 28.1 mmol/L (21.0-32.0); CREATININE 0.8 mg/dL (0.70-1.30); Calcium 8.8 mg/dL (8.5-10.1); Chloride 104 mmol/L (98-107); Glucose 108 mg/dL (74-106); Potassium 4.7 mmol/L (3.5-5.1); Sodium 139 mmol/L (136-145); Total Protein 6.6 g/dL (6.4-8.2)
[2020-03-10 10:54] LABS: PSA, Ultrasensitive 1193 ng/mL (<= 6.5)
[2020-03-10 22:23] LABS: Testosterone, Total <7.0 ng/dL (240-950)
== END 2020-03-08 04:55 ==
PROVIDERS: PCP Family Medicine; Visit Provider Internal Medicine
DX: C61 Malignant neoplasm of prostate (principal)
CPT/HCPCS: 36415; 80053; 84153; 84403; 85025

== ENCOUNTER 2020-03-29 03:07 | Outpatient (CLI) | payer MEDICARE, BC, SELFPAY ==
[2020-03-29 12:53] LABS: Abs Immature Grans 0.06 10^3/uL (0.0-0.06); Absolute Basophil Count 0.03 10^3/uL (0.0-0.2); Absolute Lymphocyte Count 0.98 10^3/uL (1.2-3.4); Absolute Monocyte Count 0.63 10^3/uL (0.1-0.8); Absolute Neutrophil Count 4.91 10^3/uL (1.2-6.7); Basophils % 0.5; HCT 32.6 % (40.0-50.0); HGB 10.7 g/dL (13.5-17.5); Immature Grans % 0.9; Lymphocytes % 14.8; MCH 31.8 pg (27.0-33.0); MCHC 32.8 % (32.0-36.0); MCV 96.7 fL (80-95); MPV 9.1 fL (8.0-11.0); Monocytes % 9.5; Neutrophils % 74.3; Nucleated RBC 0 %; Platelet Count 236 10^3/uL (130-400); RBC 3.37 10^6/uL (4.36-5.78); RDW 14.6 % (11.8-14.1); RDW-SD 50.8 fL; WBC 6.61 10^3/uL (4.4-10.8)
[2020-03-29 13:37] LABS: ALT 18 U/L (16-63); AST 24 U/L (15-37); Albumin 3.4 g/dL (3.4-5.0); Alkaline Phosphatase 108 U/L (46-116); BUN 16 mg/dL (7-18); Bilirubin, Total 0.2 mg/dL (0.2-1.0); CREATININE 0.8 mg/dL (0.70-1.30); Calcium 8.4 mg/dL (8.5-10.1); Chloride 104 mmol/L (98-107); Glucose 109 mg/dL (74-106); Sodium 142 mmol/L (136-145); Total Protein 6.5 g/dL (6.4-8.2)
[2020-03-31 12:57] LABS: PSA, Ultrasensitive 1721 ng/mL (<= 6.5)
[2020-04-01 10:23] LABS: Testosterone, Total 8.4 ng/dL (240-950)
== END 2020-03-29 03:08 | disposition home or self-care (01) ==
LOC: LBO 03:07
PROVIDERS: PCP Family Medicine; Visit Provider Internal Medicine
DX: C61 Malignant neoplasm of prostate (principal); C79.51 Secondary malignant neoplasm of bone
CPT/HCPCS: 36415; 80053; 84153; 84403; 85025

== ENCOUNTER 2020-04-19 03:15 | Outpatient (CLI) | payer MEDICARE, BC, SELFPAY ==
[2020-04-19 09:01] LABS: Abs Immature Grans 0.15 10^3/uL (0.0-0.06); Absolute Basophil Count 0.03 10^3/uL (0.0-0.2); Absolute Lymphocyte Count 0.65 10^3/uL (1.2-3.4); Absolute Monocyte Count 0.56 10^3/uL (0.1-0.8); Absolute Neutrophil Count 6.75 10^3/uL (1.2-6.7); Basophils % 0.4; HCT 30.7 % (40.0-50.0); Immature Grans % 1.8; MCH 31.8 pg (27.0-33.0); MCHC 32.6 % (32.0-36.0); MCV 97.8 fL (80-95); MPV 8.7 fL (8.0-11.0); Monocytes % 6.9; Neutrophils % 82.9; Nucleated RBC 0 %; Platelet Count 167 10^3/uL (130-400); RBC 3.14 10^6/uL (4.36-5.78); RDW-SD 53.2 fL; WBC 8.14 10^3/uL (4.4-10.8)
[2020-04-19 10:08] LABS: ALT 17 U/L (16-63); AST 33 U/L (15-37); Albumin 3.4 g/dL (3.4-5.0); Alkaline Phosphatase 155 U/L (46-116); Anion Gap 9.6 mmol/L (3-11); BUN 12 mg/dL (7-18); Bilirubin, Total 0.4 mg/dL (0.2-1.0); CO2 26.4 mmol/L (21.0-32.0); CREATININE 0.8 mg/dL (0.70-1.30); Calcium 8.2 mg/dL (8.5-10.1); Chloride 102 mmol/L (98-107); Glucose 134 mg/dL (74-106); Sodium 138 mmol/L (136-145); Total Protein 6.4 g/dL (6.4-8.2)
[2020-04-20 20:29] LABS: PSA, Ultrasensitive 2851 ng/mL (<= 6.5)
[2020-04-21 17:41] LABS: Testosterone, Total <7.0 ng/dL (240-950)
== END 2020-04-19 03:16 | disposition home or self-care (01) ==
LOC: LBO 03:16
PROVIDERS: PCP Family Medicine; Visit Provider Internal Medicine
DX: C61 Malignant neoplasm of prostate (principal)
CPT/HCPCS: 36415; 80053; 84153; 84403; 85025

== ENCOUNTER 2020-05-10 02:28 | Outpatient (CLI) | payer MEDICARE, BC, SELFPAY ==
[2020-05-10] MEDS: Omnipaque 350 MG/ML 50 ML BTL IJ (14:14)
[2020-05-10 14:15] LABS: Abs Immature Grans 0.23 10^3/uL (0.0-0.06); Absolute Basophil Count 0.03 10^3/uL (0.0-0.2); Absolute Lymphocyte Count 0.72 10^3/uL (1.2-3.4); Absolute Monocyte Count 0.56 10^3/uL (0.1-0.8); Absolute Neutrophil Count 7.99 10^3/uL (1.2-6.7); Basophils % 0.3; HGB 8.2 g/dL (13.5-17.5); Immature Grans % 2.4; Lymphocytes % 7.6; MCH 30.9 pg (27.0-33.0); MCHC 31.5 % (32.0-36.0); MCV 98.1 fL (80-95); MPV 8.9 fL (8.0-11.0); Monocytes % 5.9; Neutrophils % 83.8; Nucleated RBC 0 %; Platelet Count 129 10^3/uL (130-400); RBC 2.65 10^6/uL (4.36-5.78); RDW 15.8 % (11.8-14.1); RDW-SD 55.8 fL; WBC 9.53 10^3/uL (4.4-10.8)
[2020-05-10] MEDS: Breeza Beverage 473 ML BTL PO (14:15)
[2020-05-10 14:29] LABS: ALT 15 U/L (16-63); AST 48 U/L (15-37); Albumin 3.5 g/dL (3.4-5.0); Alkaline Phosphatase 175 U/L (46-116); Anion Gap 13.2 mmol/L (3-11); BUN 15 mg/dL (7-18); Bilirubin, Total 0.4 mg/dL (0.2-1.0); CO2 23.8 mmol/L (21.0-32.0); CREATININE 0.9 mg/dL (0.70-1.30); Calcium 8.7 mg/dL (8.5-10.1); Chloride 101 mmol/L (98-107); Diff Comment Diff Reviewed; Glucose 107 mg/dL (74-106); Ovalocytes 2+; Poikilocytes 2+; Potassium 3.7 mmol/L (3.5-5.1); Sodium 138 mmol/L (136-145); Total Protein 7.3 g/dL (6.4-8.2)
--- NOTE | 2020-05-10 15:55 | DI.CT_ITS ---
EXAM: CT CHEST/ABD/PEL W CLINICAL HISTORY: METASTATIC PROSTATE CA, RESTAGING EXAM,COMPARE TO 12/25 TECHNIQUE: CT examination of the chest, abdomen, and pelvis was performed utilizing intravenous inf usion of 100 cc of Omnipaque 350 with biphasic hepatic imaging. Oral contrast was also administered. COMPARISON: CT CT CHEST/ABD/PEL W from 02/04/2020 FINDINGS: Lungs are clear except for stable 3 millimeter in diameter left upper lobe nodule.. No pleural effus ion. No pleural based mass. No mediastinal or hilar adenopathy. No axillary or supraclavicular adenopathy. Tracheobronchial prudencio e appears intact. No evidence of pulmonary embolic disease. Unremarkable appearance of thoracic aorta and major branch vessels. The liver contains multiple stable hepatic cysts. No change from prior scan. Spleen is unremarkable in appearance. Pancreas appears intact. Adrenals appear normal. Kidneys are unremarkable in appearance with no renal mass, hydronephrosis, or nephrolithiasis. Abdominal aorta and major visceral branches appear intact. No focal bowel pathology. Appendix is normal. No evidence of diverticulitis. Since the prior examination, there is interval development of bulky retroperitoneal adenopathy in par acaval and para-aortic chains, maximal transaxial diameter up to about 5 cm. No new supradiaphragmat ic adenopathy. No gross new pelvic adenopathy. Urinary bladder has a thickened wall, unchanged from prior study, nonspecific. No significant abdominal wall hernia. Numerous predominantly blastic metastatic bony lesions again noted, little if any interval change com parison with prior study of February 04, 2020.. IMPRESSION: New retroperitoneal paracaval and para-aortic adenopathy since prior study of February 04, 2020. Stable widespread osseous predominantly blastic lesions again noted. RADIATION DOSE DELIVERED: 1,298.93mGy.cm Total DLP 1,298.93mGy.cm Total DLP RADIATION OPTIMIZATION: All CT scans at this facility use at least one of these dose optimization te chniques: automated exposure control; mA and/or kV adjustment per patient size (includes targeted exa ms where dose is matched to clinical indication); or iterative reconstruction.
[2020-05-10] MEDS: Normal Saline - Diluent 50 ML VIAL IV (15:57)
[2020-05-10] MEDS: Omnipaque 350 MG/ML 100 ML BTL IJ (15:57)
[2020-05-10] MEDS: Normal Saline Flush 10 ML SYR IVP (15:59)
[2020-05-11 19:34] LABS: PSA, Ultrasensitive 4209 ng/mL (<= 6.5)
[2020-05-13 13:03] LABS: Testosterone, Total 10 ng/dL (240-950)
== END 2020-05-10 02:48 ==
PROVIDERS: PCP Family Medicine; Visit Provider Internal Medicine
DX: C61 Malignant neoplasm of prostate (principal); C79.51 Secondary malignant neoplasm of bone; R91.1 Solitary pulmonary nodule
CPT/HCPCS: 74177; 80053; 84153; 84403; 71260; 85025; J3490; Q9967

== ENCOUNTER 2020-06-09 08:00 | Outpatient (RCR) | payer MEDICARE, BC, SELFPAY ==
[2020-06-09] VITALS (10 sets, daily range): BP systolic 99–112; BP diastolic 62–76; PULSE 70–81; RESP 16; TEMP 36.6–37.1; O2SAT 96–98
[2020-06-09 08:21] LABS: HCT 24.9 % (40.0-50.0); HGB 7.5 g/dL (13.5-17.5); MCH 28.3 pg (27.0-33.0); MCHC 30.1 % (32.0-36.0); MPV 9.9 fL (8.0-11.0); Platelet Count 114 10^3/uL (130-400); RBC 2.65 10^6/uL (4.36-5.78); RDW 16.8 % (11.8-14.1); RDW-SD 57.8 fL; WBC 6.97 10^3/uL (4.4-10.8)
[2020-06-09 08:45] LABS: Absolute Basophil Count 0.07 10^3/uL (0.0-0.2); Absolute Lymphocyte Count 1.39 10^3/uL (1.2-3.4); Absolute Monocyte Count 0.14 10^3/uL (0.1-0.8); Absolute Neutrophil Count 5.09 10^3/uL (1.2-6.7); Atypical Lymphocytes % 3; Bands % 6; Diff Comment Manual Differential; Metamyelocytes % 4; Nucleated RBC 2 %
[2020-06-09 08:46] LABS: Anisocytosis 2+; Polychromasia Present
[2020-06-09] MEDS: Normal Saline Flush 10 ML SYR IVP (08:47)
== END 2020-07-05 23:59 | disposition home or self-care (01) ==
LOC: INF 08:00
PROVIDERS: PCP Family Medicine; Visit Provider Internal Medicine
DX: C61 Malignant neoplasm of prostate (principal); C79.51 Secondary malignant neoplasm of bone; Z79.818 Long term (current) use of other agents affecting estrogen receptors and estrogen levels; D63.0 Anemia in neoplastic disease
CPT/HCPCS: 36415; 36430; 86850; 86900; 86901; 86920; 85025; P9016

== ENCOUNTER 2020-06-29 21:36 | Outpatient (REF) | payer MEDICARE, BC, SELFPAY ==
[2020-06-29 21:49] LABS: Bilirubin Negative (Negative); Blood Large (Negative); Clarity Sl Cloudy (Clear); Glucose Negative (Negative); Ketones Negative (Negative); Leukocyte Esterase Negative (Negative); Nitrite Negative (Negative); Specific Gravity 1.015 (1.005-1.025); Urobilinogen 0.2 EU/dL (Up TO 0.2); pH 5.5 (5-8)
[2020-06-29 21:59] LABS: Bacteria Negative HPF (Negative); C & S Indicated? C&S Done As Ordered; Casts Negative LPF (Negative); Crystals Few Amorphous HPF (Negative); Epithelial Cells Rare HPF (Negative); Mucus Moderate (Negative); Other Cells Negative (Negative); RBC >50 HPF (0-2); WBC Negative HPF (0-5)
== END 2020-06-29 21:37 | disposition home or self-care (01) ==
LOC: LBN 21:36
PROVIDERS: PCP Family Medicine; Visit Provider Nurse Practitioner
DX: N39.0 Urinary tract infection, site not specified (principal)
CPT/HCPCS: 81003; 81015; 87086

== ENCOUNTER 2020-07-02 03:03 | Inpatient (IN) | payer OTHER, SELFPAY ==
[2020-07-02 03:03] VITALS: BP 95/74; PULSE 88; RESP 14; TEMP 36.9; O2SAT 95
--- NOTE | 2020-07-02 04:10 | ED.GENADUL_ITS ---
Discharge Plan Disposition Patient Disposition: [facility] INPATIENT Condition: Stable Discharge Details Clinical Impression: Acute pelvic pain, Hematuria, Acute urinary retention Admit Date/Time: 07/02/20 05:37 Admit Provider: Dorita Cavanaugh Attending Provider: Dorita Cavanaugh Primary Care Provider: Krista Gutierrez V ED Provider: Anthony Lantigua Medical Decision Making 69-year-old male with a past medical history of notable prostate cancer, metastatic, currently on hospice, who just had a Godinez catheter placed 48 hours ago. He presents today for complication with Godinez catheter. Patient states that when he was first placed it did cause some notable pain. He is unable to recall if he has passed any urine with the Godinez catheter. A home health nurse came to the house this past night, they did notice no drainage. They flushed the catheter with saline, and it flushed well but would not subsequently drain. There was some blood noted. They are unable to resolve the issue with the replacement of a second catheter, and so the patient was brought to the ER for further management. Aside for pressure in the suprapubic region as well as pain with some blood around the urethral meatus the patient notes no other complaints at this time. He is not on any blood thinners. Physical exam demonstrates notable firmness in the suprapubic region with some mild associated pain. Blood around the urethral meatus. Nontender genitalia ot herwise. Nothing is draining from the current catheter that is in. We flushed it with 50 cc of fluid/saline, subsequently blood-tinged fluid came back out, however on bladder scan patient still contained about 3 inches cc. I performed a bedside ultrasound which demonstrates what appears to be a bladder and then underneath a notable atypical mass which a Godinez catheter is in. Uncertain if this is his prostate cancer and the catheter just is not fully advanced or if there is a false tract. We will get a CT scan for further visualization. Control the patient's pain, monitor closely and reassess. 5:34 AM Laboratory work-up is returned, patient has multiple abnormalities including a low hemoglobin, worsening renal function, low calcium. CT scan results demonstrate high density object in the urinary bladder suspicious for a large hematoma or hemorrhage. We are not able to pass the Godinez catheter past this. It is very slowly draining small amount of fluid. Suspect that the patient potentially needs a suprapubic catheter. We are unable to break up the clot using normal flushing methods. I did speak with Dr. Kevin , and at this time she feels that with the patient's palliative care wishes that we will currently hold off on treatment of the hemoglobin, renal dysfunction, or electrolyte abnormalities. Instead the focus will continue to be pain control. Patient will be admitted to the floor under hospice with consult for Dr. Swann. I will place bridging orders on her behalf. I have extensively reviewed the treatment plan with the patient. I have addressed all patient concerns at this time. I have also discussed the plan with the admitting physician and they agree with the current assessment and plan and have agreed to assume responsibility for the patient. All parties demonstrate verbal understanding and agreement with our assessment and plan at this time. The documentation in this chart was dictated using [employer] dictation software. Please excuse any dictation errors. IMPRESSION: 1. High density in the urinary bladder suspicious for hematoma/hemorrhage. 2. Nonspecific diffuse infiltration of the lower abdominal and pelvic subcutaneous fat suspicious for anasarca. 3. Minimal mural thickening and adjacent stranding suspected of the collapsed rectal anal junction, clinically correlate. 4. Sclerotic osseous metastases. 5. Mild retroperitoneal adenopathy, clinically correlate. Thank you for allowing us to participate in the care of your patient. Dictated and Authenticated by: Garrett Shields MD [facility] General Date/Time Provider Initiated Documentation: 07/02/20 03:50 . [facility] Narrative: 69-year-old male with a past medical history of notable prostate cancer, metastatic, currently on hospice, who just had a Godinez catheter placed 48 hours ago. He presents today for complication with Godinez catheter. Patient states that when he was first placed it did cause some notable pain. He is unable to recall if he has passed any urine with the Godinez catheter. A home health nurse came to the house this past night, they did notice no drainage. They flushed the catheter with saline, and it flushed well but would not subsequently drain. There was some blood noted. They are unable to resolve the issue with the replacement of a second catheter, and so the patient was brought to the ER for further management. Aside for pressure in the suprapubic region as well as pain with some blood around the urethral meatus the patient notes no other complaints at this time. He is not on any blood thinners. Related Data Home Medications Medication Instructions Recorded Confirmed lorazepam [Ativan] 0.5 mg PO BID #30 tab-cap 04/25/07/02/20 polyethylene glycol 3350 17 17 g PO DAILY #510 g 05/20/20 05/20/20 gram/dose oral powder dronabinol 5 mg capsule 5 mg PO BID #30 cap 06/08/20 06/08/20 megestrol 20 mg tablet 20 mg PO DAILY PRN #20 tab 06/08/20 06/08/20 lorazepam 1 mg tablet 1 mg PO Q4H PRN PRN #30 tab [facility] 06/23/20 07/02/20 hospice ondansetron HCl 4 mg tablet 4 mg PO Q8H PRN #20 tab 06/23/20 07/02/20 prochlorperazine maleate 10 mg 10 mg PO Q6H PRN #30 tab [facility] 06/23/20 tablet hospice scopolamine base 1 mg over 3 days 1 patch TRANSDERMAL Q3D #4 ea 06/23/20 transdermal patch dronabinol 2.5 mg capsule 2.5 mg PO QHS #30 cap [facility] 06/30/20 fentanyl 37.5 mcg/hour transdermal 1 patch TRANSDERMAL Q72H #5 ea [facility] 06/30/20 07/02/20 patch hospice furosemide 40 mg tablet 40 mg PO DAILY #30 tab 06/30/20 hydromorphone 4 mg tablet 4 mg PO Q6H PRN #30 tab [facility] 06/30/20 07/02/20 Previous Rx's Medication Instructions Recorded polyethylene glycol 3350 17 17 g PO DAILY #510 g 05/20/20 gram/dose oral powder dronabinol 5 mg capsule 5 mg PO BID #30 cap 06/08/20 megestrol 20 mg tablet 20 mg PO DAILY PRN #20 tab 06/08/20 lorazepam 1 mg tablet 1 mg PO Q4H PRN PRN #30 tab [facility] 06/23/20 hospice ondansetron HCl 4 mg tablet 4 mg PO Q8H PRN #20 tab 06/23/20 prochlorperazine maleate 10 mg 10 mg PO Q6H PRN #30 tab [facility] 06/23/20 tablet hospice scopolamine base 1 mg over 3 days 1 patch TRANSDERMAL Q3D #4 ea 06/23/20 transdermal patch dronabinol 2.5 mg capsule 2.5 mg PO QHS #30 cap [facility] hospice 06/30/20 fentanyl 37.5 mcg/hour transdermal 1 patch TRANSDERMAL Q72H #5 ea [facility] 06/30/20 patch hospice furosemide 40 mg tablet 40 mg PO DAILY #30 tab 06/30/20 hydromorphone 4 mg tablet 4 mg PO Q6H PRN #30 tab [facility] hospice 06/30/20 Allergies Allergy/AdvReac Type Severity Reaction Status Date / Time finasteride Allergy Severe Unverified 08/16/18 10:56 General Stated Complaint: Urinary SAVANNAH: 4 Review of Systems All systems reviewed & are unremarkable except as noted in HPI and below PFSH Medical History Anemia side effect of chemo Appetite impaired BPH (benign prostatic hyperplasia) Cancer related pain DNI (do not intubate) DNR (do not resuscitate) Elevated fasting lipid profile Encounter for hospice care discussion Enlarged thyroid Erectile dysfunction Fatigue Fibromyalgia Goals of care, counseling/discussion Hematuria Hospice care patient enrolled 06/11/20 Malignant neoplasm of prostate Malignant neoplasm of prostate metastatic to bone Medical marijuana use Peripheral neuropathy POLST (Physician Orders for Life-Sustaining Treatment) Prostate cancer Prostate cancer metastatic to multiple sites PSA elevation Rising PSA following treatment for malignant neoplasm of prostate Seborrheic keratosis Situational anxiety Thyroid nodule Tick bite multiple bites over the years never a target lesion Unintentional weight loss Surgical History Colonoscopy - IV Sedation (03/03/16) Family History Father , diagnosed with prostate cancer age 72 age 94 Prostate cancer Brother Prostate cancer prostatectomy and now doing well Son No problems noted. Son No problems noted. 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 Pets and animals: Yes What is your relationship status?: How often do you talk on the phone with friends or family?: once per week How often do you get together with friends or relatives?: three or more times per week Panel score (0-1 are the most socially isolated patients): 2 What type of physical activity do you participate in: walking and irregular exercise Duration: 15-30 minutes/day Frequency: 3-4 times per week Special christi needs: No Seatbelt use: always Working smoke detector in home: Yes Fire extinguisher in home: Yes Do you feel safe at home: Yes Do you feel safe in your relationship?: Yes Additional Social history: . Usually spends half the year in [place], half the year in [place]. Dagoberto and his are currently living on his family's farm with his brother. Sons Piter and Lion and their families are both nearby. First diagnosed with prostate ca in February 2013, though PSA had been slowly rising before then. Over last six months, rapid progression of cancer. June 2020, Dr Paul, his oncologist, explained there are no further cancer- directed therapy options. Will be enrolling in hospice on Sunday, 06/11. Pain not yet fully controlled but getting closer. Exam Narrative Exam Narrative: 1.Const: Thin, cachectic 2.Eyes: PERRL, no conjunctival injection, and symmetrical lids. 3.ENT: Atraumatic external nose and ears. Moist MM. Neck: Symmetric, trachea midline, No thyromegaly. 4.CVS: +S1/S2, No murmurs or gallops. Peripheral pulses 2+ and equal in all extremities. Brisk capillary refill in all extremities. 5.RESP: Unlabored respiratory effort. Clear to auscultation bilaterally. No wheezes rales or rhonchi 6.GI: Soft, suprapubic area demonstrates notable firmness, and mild tenderness as well. Blood around the urethral meatus is present. 7.MSK: Normocephalic/Atraumatic, Extremities w/o deformity or ttp No cyanosis or clubbing, Normal movement of all extremities 8.Skin: Warm, Dry. No rashes or lesions. 9.Neuro: metal framer II-XII grossly intact. Sensation grossly intact, no focal neurologic deficits. 10.Psych: (AAO) x3. Appropriate mood and affect Course Vital Signs Vital signs: Vital Signs Temperature 36.9 C 07/02/20 03:03 Pulse 88 07/02/20 03:03 Respiratory Rate 14 07/02/20 03:03 Pulse Oximetry 95 07/02/20 03:03 Temperature 36.9 C 07/02/20 03:03 Temperature Source Temporal Artery Scan 07/02/20 03:03 Pulse 88 07/02/20 03:03 Respiratory Rate 14 07/02/20 03:03 Respiratory Effort Non-Labored 07/02/20 03:09 Blood Pressure Position Sitting 07/02/20 03:03 Pulse Oximetry 95 07/02/20 03:03 Oxygen Delivery Method Room Air 07/02/20 03:03 Oxygen Flow Rate 0 07/02/20 03:03 Pain Level 4 07/02/20 03:09
[2020-07-02 04:15] LABS: Abs Immature Grans 0.51 10^3/uL (0.0-0.06); MCH 27.6 pg (27.0-33.0); MCHC 31.8 % (32.0-36.0); MCV 87.1 fL (80-95); MPV 9.9 fL (8.0-11.0); RDW 17.4 % (11.8-14.1); WBC 5.67 10^3/uL (4.4-10.8)
[2020-07-02 04:22] LABS: ALT 11 U/L (16-63); AST 52 U/L (15-37); Albumin 2.8 g/dL (3.4-5.0); Alkaline Phosphatase 333 U/L (46-116); Anion Gap 15.2 mmol/L (3-11); BUN 41 mg/dL (7-18); Bilirubin, Total 0.9 mg/dL (0.2-1.0); CO2 20.8 mmol/L (21.0-32.0); CREATININE 2.7 mg/dL (0.70-1.30); Calcium 6.9 mg/dL (8.5-10.1); Chloride 91 mmol/L (98-107); Estimated GFR 23.48 (mL/min/1.73m2); Glucose 143 mg/dL (74-106); Potassium 4.9 mmol/L (3.5-5.1); Sodium 127 mmol/L (136-145); Total Protein 6.6 g/dL (6.4-8.2)
[2020-07-02 04:40] LABS: HCT 14.8 % (40.0-50.0); HGB 4.7 g/dL (13.5-17.5)
[2020-07-02 04:41] LABS: Absolute Lymphocyte Count 0.51 10^3/uL (1.2-3.4); Absolute Monocyte Count 0.51 10^3/uL (0.1-0.8); Absolute Neutrophil Count 4.37 10^3/uL (1.2-6.7); Platelet Count 37 10^3/uL (130-400)
[2020-07-02 04:42] LABS: Anisocytosis 2+; Diff Comment Manual Differential; Hypochromasia 2+; Metamyelocytes % 2; Myelocytes % 3; Poikilocytes 2+
[2020-07-02 04:45] LABS: INR 1.2 (0.9-1.1); PTT Activated 24.5 sec (21.0-27.5); Prothrombin Time 12.1 sec (9.3-11.0)
--- NOTE | 2020-07-02 04:48 | DI.CT_ITS ---
Exam(s) CT ABDOMEN PELVIS WO EXAM: CT ABDOMEN PELVIS WO CLINICAL HISTORY: concern for false gary cath tract TECHNIQUE: COMPARISON: CT CT CHEST/ABD/PEL W from 05/10/2020 FINDINGS: Noncontrast CT of the abdomen and pelvis was performed. Images obtained through the lung bases are u nremarkable. There are multiple hepatic cysts as noted on prior examinations. Spleen is unremarkable in appearance.. Gallbladder and bile ducts are unremarkable. Pancreas is unremarkable in appearance. Adrenals appear normal bilaterally. There is mild bilateral hydro ureteral nephrosis. No calcification seen. Urinary bladder is distend ed and contains a Gary catheter. There is gas and intermediate radiodensity material in the urinary bladder, consider hematoma, neoplastic disease not excluded. Small metallic prostatic radiodensitie s consistent with prior surgical and/or radiotherapy procedures. Bulky retroperitoneal adenopathy again noted, mild increase in prominence nodes adjacent to GE juncti on is also noted, largest nodes at this site are roughly 11 millimeters in diameter. Abdominal aorta is of normal diameter and no abnormality is seen involving major visceral branches.. Appendix is normal. No evidence diverticulitis or bowel obstruction. No significant abdominal wall hernia seen. Widespread osseous metastases again noted as seen on prior studies.. Impression: Gas and presumed hemorrhage in urinary bladder as described above. Bulky retroperitoneal adenopathy and widespread osseous metastases again noted. RADIATION DOSE DELIVERED: 673.77mGy.cm Total DLP 673.77mGy.cm Total DLP DATA REPOSITORY: All CT scans at this facility are submitted to the National Radiology Data Registry (NRDR) Dose Index Registry (DIR) with the [employer] (ACR). RADIATION OPTIMIZATION: All CT scans at this facility use at least one of these dose optimization te chniques: automated exposure control; mA and/or kV adjustment per patient size (includes targeted exa ms where dose is matched to clinical indication); or iterative reconstruction.
--- NOTE | 2020-07-02 05:18 | DI.VRAD_ITS ---
PROCEDURE INFORMATION: Exam: CT Abdomen And Pelvis Without Contrast Exam date and time: 07/02/2020 3:51 AM Age: 69 years old Clinical indication: Device placement; Non-vascular device; Other: Urinary catheter; Patient HX: Hematuria x1 week, HX prostate cancer, treatments completed 04/2020, eval for catheter placement TECHNIQUE: Imaging protocol: Computed tomography of the abdomen and pelvis without contrast. Radiation optimization: All CT scans at this facility use at least one of these dose optimization techniques: automated exposure control; mA and/or kV adjustment per patient size (includes targeted exams where dose is matched to clinical indication); or iterative reconstruction. COMPARISON: CT CHEST/ABD/PEL W 05/10/2020 3:41 PM FINDINGS: Liver: Hepatic cysts. Gallbladder and bile ducts: Normal. No calcified stones. No ductal dilation. Pancreas: Normal. No ductal dilation. Spleen: Normal. No splenomegaly. Adrenal glands: Normal. No mass. Kidneys and ureters: Mild bilateral hydroureteronephrosis. Stomach and bowel: Minimal mural thickening and adjacent stranding suspected of the collapsed rectal anal junction, clinically correlate. Colonic diverticula. Appendix: No evidence of appendicitis. Intraperitoneal space: Unremarkable. No free air. No significant fluid collection. Vasculature: Unremarkable. No abdominal aortic aneurysm. Lymph nodes: Mild retroperitoneal adenopathy, clinically correlate. Urinary bladder: High density in the urinary bladder suspicious for hematoma/hemorrhage. Godinez catheter in urinary bladder. Reproductive: Status post prostatectomy. Bones/joints: Sclerotic osseous metastases. Soft tissues: Nonspecific diffuse infiltration of the lower abdominal and pelvic subcutaneous fat suspicious for anasarca. IMPRESSION: 1. High density in the urinary bladder suspicious for hematoma/hemorrhage. 2. Nonspecific diffuse infiltration of the lower abdominal and pelvic subcutaneous fat suspicious for anasarca. 3. Minimal mural thickening and adjacent stranding suspected of the collapsed rectal anal junction, clinically correlate. 4. Sclerotic osseous metastases. 5. Mild retroperitoneal adenopathy, clinically correlate. Dictated and Authenticated by: Garrett Shields MD. Ordering:TONY Cruz MD
[2020-07-02 05:46] LABS: Source Nasal/Nares
[2020-07-02 06:04] LABS: Nucleated RBC 0 %
[2020-07-02 06:16] VITALS: BP 100/51; PULSE 115; RESP 18; TEMP 36.4; O2SAT 96
[2020-07-02 06:29] VITALS: BP 95/74; PULSE 88; RESP 14; TEMP 36.9; O2SAT 95
--- NOTE | 2020-07-02 07:18 | W.PM.HP.N ---
Date of service: 07/02/20 Time of Service: 06:00 Assessment and Plan Assessment and plan (1) Hematuria: Status: Acute (2) Acute urinary retention: Status: Acute (3) Hospice care patient: Status: Chronic Assessment and plan: Dagoberto is admitted under hospice care for symptom management, which may include palliative urology consult for possible He has been ambulating and eating/drinking, albeit with a noted decrease in strength and energy, this past week and is expected to continue declining as his cancer is aggressive. He will require pain management, as well as active gary care and probable bladder irrigation. A super-pubic catheter may be necessary for comfort. His renal function is declining, but could improve once bladder irrigation and presumed obstruction is improved. His nausea is expected to worsen, which we will monitor. Anemia is acute on chronic, 2' cancer, chemo and hematuria. Monitor pain and review hematuria and recommendations from urology. (4) Cancer related pain: Status: Acute (5) Anemia: Status: Chronic (6) RADHA (acute kidney injury): Status: Acute History of Present Illness Dagoberto is a 69 yo with aggressive prostate cancer. He came through the ED overnight due to obstructed urinary catheter. The hospice nurse was at his home last night and called me after the new, larger catheter would not flush. Manual irrigation was attempted without success. Dagoberto was in discomfort, despite and additional hydromorphone, and it was unclear how full his bladder was at this point. We decided to have him transported to the ED for a bladder scan and larger gauge catheter with possible manual or continuous irrigation trial. His bladder scan was unclear, and additional imaging was ordered. A urology consult was recommended for possible super-pubic catheter placement. I met Dagoberto and his , Maria C, in the hospital. He was sitting up in bed, pale/ashen, but stoic and with a calm demeanor. He stated his pain was tolerable, but the urge to urinate was strong. I counseled to expect this sensation as the pressure in the bladder seems to be from a hematoma rather than urine. He was aware that Dr. Swann was consulted; he had met with Dr. Swann years ago. He and his did not recall working with a urologist recently. He admitted to mild nausea and mild hunger when asked. He was interested in a cup of coffee [staff requested hospice cart with coffee]. Review of Systems Narrative: No acute complaints aside from HPI. He had just arrived to the floor, and was being admitted by nursing. I did not interrupt. Genitourinary Genitourinary: Reports as per HPI (Gary in place, red urine in catheter and bag. No gross sediment.) and Reports hematuria [facility] Medical History (Updated 07/02/20 @ 07:44 by Dorita Cavanaugh DO) RADHA (acute kidney injury) Anemia side effect of chemo Appetite impaired BPH (benign prostatic hyperplasia) Cancer related pain DNI (do not intubate) DNR (do not resuscitate) Elevated fasting lipid profile Encounter for hospice care discussion Enlarged thyroid Erectile dysfunction Fatigue Fibromyalgia Goals of care, counseling/discussion Hematuria Hospice care patient enrolled 06/11/20 Malignant neoplasm of prostate Malignant neoplasm of prostate metastatic to bone Medical marijuana use Peripheral neuropathy POLST (Physician Orders for Life-Sustaining Treatment) Prostate cancer Prostate cancer metastatic to multiple sites PSA elevation Rising PSA following treatment for malignant neoplasm of prostate Seborrheic keratosis Situational anxiety Thyroid nodule Tick bite multiple bites over the years never a target lesion Unintentional weight loss Surgical History Colonoscopy - IV Sedation (03/03/16) Family History Father , diagnosed with prostate cancer age 72 age 94 Prostate cancer Brother Prostate cancer prostatectomy and now doing well Son No problems noted. Son No problems noted. 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 Pets and animals: Yes What is your relationship status?: How often do you talk on the phone with friends or family?: once per week How often do you get together with friends or relatives?: three or more times per week Panel score (0-1 are the most socially isolated patients): 2 What type of physical activity do you participate in: walking and irregular exercise Duration: 15-30 minutes/day Frequency: 3-4 times per week Special christi needs: No Seatbelt use: always Working smoke detector in home: Yes Fire extinguisher in home: Yes Do you feel safe at home: Yes Do you feel safe in your relationship?: Yes Additional Social history: . Usually spends half the year in [place], half the year in [place]. Dagoberto and his are currently living on his family's farm with his brother. Sons Piter and Lion and their families are both nearby. First diagnosed with prostate ca in February 2013, though PSA had been slowly rising before then. Over last six months, rapid progression of cancer. June 2020, Dr Paul, his oncologist, explained there are no further cancer-directed therapy options. Will be enrolling in hospice on Sunday, 06/11. Pain not yet fully controlled but getting closer. Meds Allergies and Home Medications Allergies Allergy/AdvReac Type Severity Reaction Status Date / Time finasteride Allergy Severe Unverified 08/16/18 10:56 Home Medications Medication Instructions Recorded Confirmed Type lorazepam [Ativan] 0.5 mg PO BID #30 tab-cap 04/25/13 07/02/20 History polyethylene glycol 3350 17 17 g PO DAILY #510 g 05/20/20 05/20/20 Rx gram/dose oral powder dronabinol 5 mg capsule 5 mg PO BID #30 cap 06/08/20 06/08/20 Rx megestrol 20 mg tablet 20 mg PO DAILY PRN #20 tab 06/08/20 06/08/20 Rx lorazepam 1 mg tablet 1 mg PO Q4H PRN PRN #30 tab [facility] 06/23/20 07/02/20 Rx hospice ondansetron HCl 4 mg tablet 4 mg PO Q8H PRN #20 tab 06/23/20 07/02/20 Rx prochlorperazine maleate 10 mg 10 mg PO Q6H PRN #30 tab [facility] 06/23/20 Rx tablet hospice scopolamine base 1 mg over 3 days 1 patch TRANSDERMAL Q3D #4 ea 06/23/20 Rx transdermal patch dronabinol 2.5 mg capsule 2.5 mg PO QHS #30 cap [facility] 06/30/20 Rx fentanyl 37.5 mcg/hour transdermal 1 patch TRANSDERMAL Q72H #5 ea [facility] 06/30/20 07/02/20 Rx patch hospice furosemide 40 mg tablet 40 mg PO DAILY #30 tab 06/30/20 Rx hydromorphone 4 mg tablet 4 mg PO Q6H PRN #30 tab [facility] 06/30/20 07/02/20 Rx Exam Narrative Exam Narrative: I spoke with Dagoberto and Maria C and nursing, but did not interrupt admission process. No SOB or difficulty speaking. Dagoberto was sitting up in bed, with outstretched legs, able to reposition himself. Results Labs Result diagrams: 07/02/20 04:00 07/02/20 04:00 Labs: Laboratory Results - last 24 hr 07/02/20 07/02/20 07/02/20 04:00 04:00 04:00 WBC 5.67 RBC 1.70 L Hgb 4.7 L* Hct 14.8 L* MCV 87.1 MCH 27.6 MCHC 31.8 L RDW 17.4 H Plt Count 37 L D MPV 9.9 Immature Gran % 0.0 Neutrophils % 77.0 Lymphocytes % 9.0 Monocytes % 9.0 Eosinophils % 0.0 Basophils % 0.0 Metamyelocytes % 2 Myelocytes % 3 Nucleated RBC % 0 Absolute Neutrophils 4.37 Absolute Lymphocytes 0.51 L Absolute Monocytes 0.51 Absolute Eosinophils 0.00 Absolute Basophils 0.00 RBC Morphology See below Hypochromasia 2+ Poikilocytosis 2+ Anisocytosis 2+ PT 12.1 H INR 1.2 H APTT 24.5 Sodium 127 L Potassium 4.9 Chloride 91 L Carbon Dioxide 20.8 L Anion Gap 15.2 H BUN 41 H Creatinine 2.7 H Estimated GFR/1.73 m2 23.48 Glucose 143 H Calcium 6.9 L Total Bilirubin 0.9 AST 52 H ALT 11 L Alkaline Phosphatase 333 H Total Protein 6.6 Albumin 2.8 L COVID-19 Source 07/02/20 05:45 WBC RBC Hgb Hct MCV MCH MCHC RDW Plt Count MPV Immature Gran % Neutrophils % Lymphocytes % Monocytes % Eosinophils % Basophils % Metamyelocytes % Myelocytes % Nucleated RBC % Absolute Neutrophils Absolute Lymphocytes Absolute Monocytes Absolute Eosinophils Absolute Basophils RBC Morphology Hypochromasia Poikilocytosis Anisocytosis PT INR APTT Sodium Potassium Chloride Carbon Dioxide Anion Gap BUN Creatinine Estimated GFR/1.73 m2 Glucose Calcium Total Bilirubin AST ALT Alkaline Phosphatase Total Protein Albumin COVID-19 Source Nasal/nares Last Vital Signs Temp 98.4 F 07/02/20 06:29 Pulse 88 07/02/20 06:29 Resp 14 07/02/20 06:29 BP 95/74 L 07/02/20 06:29 Pulse Ox 95 07/02/20 06:29 COVID-19 Screening Have you, or household traveled for leisure in last 14 days?: No Had IN PERSON contact w/suspected or confirmed C-19 person: No
--- NOTE | 2020-07-02 08:35 | W.UROLOGYCON ---
Date of service: 07/02/20 Time of Service: 08:37 Assessment and Plan Assessment and plan (1) Clot retention of urine: Status: Acute Assessment and plan: The exact etiology of his bleeding is not known. Likely culprits include radiation cystitis or progression of his prostate cancer. I do not think determining the etiology would be all that important at this point as long as we can keep his bladder draining and the patient comfortable. I will ask for continuous bladder irrigation to start and we can hand irrigate the catheter as needed. History of Present Illness History of Present Illness Chief Complaint: Clot retention Narrative: This is a 69-year-old gentleman who has a history of high-grade metastatic adenocarcinoma of the prostate. He was diagnosed in 2013. He was treated with a combination of androgen deprivation and external beam radiation. He has had chemotherapy and immunotherapy as well. His tumor has progressed and he is now on palliative care/hospice measures. Last evening he had a catheter placed while at home. Minimal urine output was obtained and the catheter could not be hand irrigated. He was brought to the emergency room this morning with suprapubic discomfort. Again, his catheter could not be unplugged. A CT scan demonstrated what appears to be blood product in the bladder. I have been asked to see him for bladder drainage. [facility] Medical History (Updated 07/02/20 @ 08:44 by Tim Swann MD) RADHA (acute kidney injury) Anemia side effect of chemo Appetite impaired BPH (benign prostatic hyperplasia) Cancer related pain Clot retention of urine DNI (do not intubate) DNR (do not resuscitate) Elevated fasting lipid profile Encounter for hospice care discussion Enlarged thyroid Erectile dysfunction Fatigue Fibromyalgia Goals of care, counseling/discussion Hematuria Hospice care patient enrolled 06/11/20 Malignant neoplasm of prostate Malignant neoplasm of prostate metastatic to bone Medical marijuana use Peripheral neuropathy POLST (Physician Orders for Life-Sustaining Treatment) Prostate cancer Prostate cancer metastatic to multiple sites PSA elevation Rising PSA following treatment for malignant neoplasm of prostate Seborrheic keratosis Situational anxiety Thyroid nodule Tick bite multiple bites over the years never a target lesion Unintentional weight loss Surgical History Colonoscopy - IV Sedation (03/03/16) Family History Father , diagnosed with prostate cancer age 72 age 94 Prostate cancer Brother Prostate cancer prostatectomy and now doing well Son No problems noted. Son No problems noted. 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 Pets and animals: Yes What is your relationship status?: How often do you talk on the phone with friends or family?: once per week How often do you get together with friends or relatives?: three or more times per week Panel score (0-1 are the most socially isolated patients): 2 What type of physical activity do you participate in: walking and irregular exercise Duration: 15-30 minutes/day Frequency: 3-4 times per week Special christi needs: No Seatbelt use: always Working smoke detector in home: Yes Fire extinguisher in home: Yes Do you feel safe at home: Yes Do you feel safe in your relationship?: Yes Additional Social history: . Usually spends half the year in [place], half the year in [place]. Dagoberto and his are currently living on his family's farm with his brother. Sons Piter and Lion and their families are both nearby. First diagnosed with prostate ca in February 2013, though PSA had been slowly rising before then. Over last six months, rapid progression of cancer. June 2020, Dr Paul, his oncologist, explained there are no further cancer-directed therapy options. Will be enrolling in hospice on Sunday, 06/11. Pain not yet fully controlled but getting closer. Exam Narrative Exam Narrative: He appears chronic ill. He has a [address] that is not draining. He has penile and perineal edema. He has bilateral lower extremity edema as well. Results Last Vital Signs Temp 36.9 C 07/02/20 06:29 Pulse 88 07/02/20 06:29 Resp 14 07/02/20 06:29 BP 95/74 L 07/02/20 06:29 Pulse Ox 95 07/02/20 06:29 Labs Result diagrams: 07/02/20 04:00 07/02/20 04:00 Labs: Laboratory Results - last 24 hr 07/02/20 07/02/20 07/02/20 04:00 04:00 04:00 WBC 5.67 RBC 1.70 L Hgb 4.7 L* Hct 14.8 L* MCV 87.1 MCH 27.6 MCHC 31.8 L RDW 17.4 H Plt Count 37 L D MPV 9.9 Immature Gran % 0.0 Neutrophils % 77.0 Lymphocytes % 9.0 Monocytes % 9.0 Eosinophils % 0.0 Basophils % 0.0 Metamyelocytes % 2 Myelocytes % 3 Nucleated RBC % 0 Absolute Neutrophils 4.37 Absolute Lymphocytes 0.51 L Absolute Monocytes 0.51 Absolute Eosinophils 0.00 Absolute Basophils 0.00 RBC Morphology See below Hypochromasia 2+ Poikilocytosis 2+ Anisocytosis 2+ PT 12.1 H INR 1.2 H APTT 24.5 Sodium 127 L Potassium 4.9 Chloride 91 L Carbon Dioxide 20.8 L Anion Gap 15.2 H BUN 41 H Creatinine 2.7 H Estimated GFR/1.73 m2 23.48 Glucose 143 H Calcium 6.9 L Total Bilirubin 0.9 AST 52 H ALT 11 L Alkaline Phosphatase 333 H Total Protein 6.6 Albumin 2.8 L COVID-19 Source 07/02/20 05:45 WBC RBC Hgb Hct MCV MCH MCHC RDW Plt Count MPV Immature Gran % Neutrophils % Lymphocytes % Monocytes % Eosinophils % Basophils % Metamyelocytes % Myelocytes % Nucleated RBC % Absolute Neutrophils Absolute Lymphocytes Absolute Monocytes Absolute Eosinophils Absolute Basophils RBC Morphology Hypochromasia Poikilocytosis Anisocytosis PT INR APTT Sodium Potassium Chloride Carbon Dioxide Anion Gap BUN Creatinine Estimated GFR/1.73 m2 Glucose Calcium Total Bilirubin AST ALT Alkaline Phosphatase Total Protein Albumin COVID-19 Source Nasal/nares Insert Bladder Catheter Text: I removed his and dwelling urethral catheter. I prepped his genitalia. I inserted to syringes of 2% Xylocaine jelly into the urethra. I then passed a 22 Turkish hematuria catheter through the urethra into the bladder. The catheter balloon was inflated with 30 cc of sterile water. I then hand irrigated the catheter with over 2 L of saline. Numerous clots were obtained. Once the irrigant became transparent, I hooked the catheter to gravity drainage.
--- NOTE | 2020-07-02 09:04 | PDOC.CMPRO ---
Care Management Progress Note Dagoberto is admitted under hospice care for symptom management, which may include palliative urology consult for possible He has been ambulating and eating/drinking, albeit with a noted decrease in strength and energy, this past week and is expected to continue declining as his cancer is aggressive. Plan to monitor pain and review hematuria and recommendations from urology. Per Dr. Swann: I do not think determining the etiology would be all that important at this point as long as we can keep his bladder draining and the patient comfortable. I will ask for continuous bladder irrigation to start and we can hand irrigate the catheter as needed.
[2020-07-02] MEDS: HYDROmorphone 4 MG TAB PO (09:12)
[2020-07-02] MEDS: Polyethylene Glycol 3350 17 GM PACKET PO (09:12)
[2020-07-02] MEDS: LORazepam 0.5 MG TAB PO (09:12)
[2020-07-02] MEDS: Scopolamine 1 MG/3 DAYS PATCH TD (09:13)
[2020-07-02] MEDS: Ondansetron 4 MG/2 ML VIAL IVP (10:35)
[2020-07-02 10:44] LABS: COVID-19 PCR Negative (Negative)
[2020-07-02] MEDS: Normal Saline Flush 10 ML SYR IVP (10:47)
--- NOTE | 2020-07-02 11:22 | DSE_ITS ---
Date of service: 07/02/20 Time of Service: 11:22 DS: Diagnosis Discharge Diagnosis (1) Clot retention of urine: Status: Acute Asessment and Plan: Dr Swann, urologist, was consulted to help us manage Dagoberto's symptoms. This am, Dr Swann placed a specialzed large 20 Malagasy catheter known as a hematuria catheter and aggressively flushed Dagoberto's bladder. After this procedure, Dagoberto's catheter was working for about an hour. He then reclotted. There is no better catheter for this problem. We talked about continuous flushing of his catheter, but despite multiple attempts, we could not clear the clot so we could not start the continuous flushing. I spoke to Dr Swann again and we discussed taking Dagoberto to the OR, but Dr Swann acknowledged that if he was able to clear him now, he would probably reclot within a few hours or less. Therefore, we have to focus on aggressive symptom control. (2) Acute pelvic pain: Status: Acute Asessment and Plan: Starting on hydromorphone pump. He still looked uncomfortable at 1 mg/hr so I increased his basal dose to 3 mg/hr at discharge, with 1.5 mg bolus q 15 minutes. Yayo Malik RN came to instruct the family of the pump's use. (3) Hematuria: Status: Acute Asessment and Plan: Platelets are low at 37,000. Tumor is likely frankly bleeding. (4) Hospice care patient: Status: Chronic Asessment and Plan: Admitted on hospice symptom management. He is very clear that he wants to go home for the end of his life. He will be transported home by ambulance. (5) Goals of care, counseling/discussion: Status: Acute Asessment and Plan: Dagoberto was very clear that he wanted to be home. He wants his family around him. (6) Malignant neoplasm of prostate metastatic to bone: Status: Acute Asessment and Plan: His pain is primarily in his bladder but he also has known bone mets. He was on a fentanyl patch on admission. This has been removed as he is now on the pump. (7) Prostate cancer metastatic to multiple sites: Status: Acute (8) Bladder spasms: Status: Acute Asessment and Plan: Sending him home with belladona/opium suppositories. Family instructed on how to insert. (9) Hematuria: Status: Deleted (10) Acute urinary retention: Status: Acute (11) Anemia: Status: Chronic Discharge Plan Disposition Patient Disposition: HOME W/HOME HEALTH SERVICE Condition: Stable Discharge Details Reason For Visit: PAIN Admit Date/Time: 07/02/20 05:37 Admit Provider: Dorita Cavanaugh Attending Provider: Dorita Cavanaugh Primary Care Provider: Krista Gutierrez V Home Meds and New Rx's Prescriptions: New acetaminophen 650 mg Suppository 650 mg ME Q4H PRN PRNQty: 12 RF: 0 lorazepam 1 mg Tablet 1 mg PO Q4H Qty: 30 RF: 0 belladonna alkaloids-opium 16.2-30 mg Suppository 1 supp ME Q4H Qty: 12 RF: 0 Continued ondansetron HCl [Zofran] 4 mg tablet 4 mg PO Q8H PRN (Reason: nausea and vomiting) Qty: 20 RF: 0 prochlorperazine maleate 10 mg tablet 10 mg PO Q6H [facility] hospice PRN (Reason: nausea and vomiting) Qty: 30 RF: 0 Discontinued megestrol 20 mg tablet 20 mg PO DAILY PRN (Reason: appetite stimulant) Qty: 20 RF: 0 dronabinol [Marinol] 5 mg capsule 5 mg PO BID Qty: 30 RF: 0 polyethylene glycol 3350 [Miralax] 17 gram/dose powder 17 g PO DAILY Qty: 510 RF: 8 lorazepam [Ativan] 0.5 MG tablet 0.5 mg PO BID Qty: 30 RF: 0 scopolamine base 1 mg over 3 days patch 3 day 1 patch transdermal Q3D Qty: 4 RF: 0 fentanyl 37.5 mcg/hour patch 72 hour 1 patch transdermal Q72H [facility] hospice Qty: 5 RF: 0 hydromorphone 4 mg tablet 4 mg PO Q6H [facility] hospice PRN (Reason: pain) Qty: 30 RF: 0 furosemide [Lasix] 40 mg tablet 40 mg PO DAILY Qty: 30 RF: 0 dronabinol [Marinol] 2.5 mg capsule 2.5 mg PO QHS [facility] hospice Qty: 30 RF: 0 No Action lorazepam 1 mg tablet 1 mg PO Q4H PRN [facility] hospice PRN (Reason: anxiety or nausea) Qty: 30 RF: 0 Discharge Instructions Activity:: Activity as Tolerated Equipment/Supplies:: No Equipment Needed Diet:: As Tolerated DS: Summary Time Spent with Patient providing and/or coordinating discharge services: Greater than 30 minutes Status at Discharge Functional status at discharge: bed bound Overall status at discharge: patient is not back to baseline Mental Status: other (sedated) Speech and Movement: delayed speech and slowed movement Mood: congruent mood Affect: sad and blunted Exam Psych Speech and Movement: delayed speech and slowed movement Mood: congruent mood Affect: sad and blunted DS: Data Vitals/I&O Vitals and I&O: Vital Signs Temperature 98.4 F 07/02/20 06:29 Temperature Source Temporal Artery Scan 07/02/20 03:03 Pulse 88 07/02/20 06:29 Pulse Rhythm Regular 07/02/20 06:16 Respiratory Rate 14 07/02/20 06:29 Respiratory Effort Non-Labored 07/02/20 06:16 Respiratory Depth Normal 07/02/20 06:16 Respiratory Pattern Normal 07/02/20 06:16 Blood Pressure 95/74 L 07/02/20 06:29 Blood Pressure Position Sitting 07/02/20 03:03 Pulse Oximetry 95 07/02/20 06:29 Oxygen Delivery Method Room Air 07/02/20 06:16 Oxygen Flow Rate 0 07/02/20 06:16 Pain Level 3 07/02/20 09:12 Intake & Output 07/01/20 07/01/20 07/02/20 11:59 23:59 11:59 Weight 164 lb 0.383 oz Other: Urine Appearance Hematuria Data Completed and Pending Labs on day of discharge: Labs from last 24 hours 07/02/20 07/02/20 07/02/20 05:45 04:00 04:00 WBC 5.67 RBC 1.70 L Hgb 4.7 L* Hct 14.8 L* MCV 87.1 MCH 27.6 MCHC 31.8 L RDW 17.4 H Plt Count 37 L D MPV 9.9 Immature Gran % 0.0 Neutrophils % 77.0 Lymphocytes % 9.0 Monocytes % 9.0 Eosinophils % 0.0 Basophils % 0.0 Metamyelocytes % 2 Myelocytes % 3 Nucleated RBC % 0 Absolute Neutrophils 4.37 Absolute Lymphocytes 0.51 L Absolute Monocytes 0.51 Absolute Eosinophils 0.00 Absolute Basophils 0.00 RBC Morphology See below Hypochromasia 2+ Poikilocytosis 2+ Anisocytosis 2+ PT 12.1 H INR 1.2 H APTT 24.5 Sodium Potassium Chloride Carbon Dioxide Anion Gap BUN Creatinine Estimated GFR/1.73 m2 Glucose Calcium Total Bilirubin AST ALT Alkaline Phosphatase Total Protein Albumin COVID-19 Source Nasal/nares SARS-CoV-2 (PCR) Negative 07/02/20 04:00 WBC RBC Hgb Hct MCV MCH MCHC RDW Plt Count MPV Immature Gran % Neutrophils % Lymphocytes % Monocytes % Eosinophils % Basophils % Metamyelocytes % Myelocytes % Nucleated RBC % Absolute Neutrophils Absolute Lymphocytes Absolute Monocytes Absolute Eosinophils Absolute Basophils RBC Morphology Hypochromasia Poikilocytosis Anisocytosis PT INR APTT Sodium 127 L Potassium 4.9 Chloride 91 L Carbon Dioxide 20.8 L Anion Gap 15.2 H BUN 41 H Creatinine 2.7 H Estimated GFR/1.73 m2 23.48 Glucose 143 H Calcium 6.9 L Total Bilirubin 0.9 AST 52 H ALT 11 L Alkaline Phosphatase 333 H Total Protein 6.6 Albumin 2.8 L COVID-19 Source SARS-CoV-2 (PCR) [facility] Medical History RADHA (acute kidney injury) Anemia side effect of chemo Appetite impaired Bladder spasms BPH (benign prostatic hyperplasia) Cancer related pain Clot retention of urine DNI (do not intubate) DNR (do not resuscitate) Elevated fasting lipid profile Encounter for hospice care discussion Enlarged thyroid Erectile dysfunction Fatigue Fibromyalgia Goals of care, counseling/discussion Hospice care patient enrolled 06/11/20 Malignant neoplasm of prostate Malignant neoplasm of prostate metastatic to bone Medical marijuana use Peripheral neuropathy POLST (Physician Orders for Life-Sustaining Treatment) Prostate cancer Prostate cancer metastatic to multiple sites PSA elevation Rising PSA following treatment for malignant neoplasm of prostate Seborrheic keratosis Situational anxiety Thyroid nodule Tick bite multiple bites over the years never a target lesion Unintentional weight loss Surgical History Colonoscopy - IV Sedation (03/03/16) Family History Father , diagnosed with prostate cancer age 72 age 94 Prostate cancer Brother Prostate cancer prostatectomy and now doing well Son No problems noted. Son No problems noted. Mother , age 89 from multiple SBOs and malnutrition Small bowel obstruction Malnutrition Brother BPH (benign prostatic hyperplasia) Social History (Updated 07/02/20 @ 11:49 by Alfreda Krause MD) Smoking/Tobacco Use Status: Never Smoking risk assessment performed?: Yes Alcohol Intake: current Drug use: Daily Substance use type: marijuana Details: helps with his cancer symptoms Caregiver/Support person: Yes Household members: spouse Housing: house Number of Children: 2 Communication Needs: Corrective Lenses Education Level: college current occupation: retired from [employer] Pets and animals: Yes What is your relationship status?: How often do you talk on the phone with friends or family?: once per week How often do you get together with friends or relatives?: three or more times per week Panel score (0-1 are the most socially isolated patients): 2 What type of physical activity do you participate in: walking and irregular exercise Duration: 15-30 minutes/day Frequency: 3-4 times per week Special christi needs: No Seatbelt use: always Working smoke detector in home: Yes Fire extinguisher in home: Yes Do you feel safe at home: Yes Do you feel safe in your relationship?: Yes Additional Social history: . Usually spends half the year in [place], half the year in [place]. Dagoberto and his are currently living on his family's farm with his brother. Sons Piter and Lion and their families are both nearby. First diagnosed with prostate ca in February 2013, though PSA had been slowly rising before then. Over last six months, rapid progression of cancer. June 2020, Dr Paul, his oncologist, explained there are no further cancer- directed therapy options. Enrolled in hospice on Sunday, 06/11. Pain not yet fully controlled but getting closer. Life expectancy measured in hours to days.
[2020-07-02] MEDS: LORazepam 1 MG TAB PO (12:22)
== END 2020-07-02 12:48 | disposition home health service (06) | DRG 696 ==
LOC: ER 05:44 → MS 06:14
PROVIDERS: Admitting Provider Student in an Organized Health Care Education/Training Program; Emergency Provider Student in an Organized Health Care Education/Training Program; PCP Family Medicine; Visit Provider Student in an Organized Health Care Education/Training Program
DX: R31.9 Hematuria, unspecified (principal); C79.51 Secondary malignant neoplasm of bone; G89.3 Neoplasm related pain (acute) (chronic); N32.89 Other specified disorders of bladder; C61 Malignant neoplasm of prostate; N40.0 Benign prostatic hyperplasia without lower urinary tract symptoms; E78.5 Hyperlipidemia, unspecified; M79.7 Fibromyalgia; E04.9 Nontoxic goiter, unspecified; D64.81 Anemia due to antineoplastic chemotherapy; T45.1X5A Adverse effect of antineoplastic and immunosuppressive drugs, initial encounter; Z66 Do not resuscitate; N17.9 Acute kidney failure, unspecified; D64.9 Anemia, unspecified; Z51.5 Encounter for palliative care; Z20.822 Contact with and (suspected) exposure to COVID-19
CPT/HCPCS: 51700; 51703; 80053; 87635; 99221; 99285; 74176; 85025; 85610; 85730; J1170; J2405